=== PATIENT | female | born 1955 | race Caucasian/White ===

== ENCOUNTER 2016-08-02 17:22 | Inpatient (IN) | payer BC, OTHER ==
[~2016-08-02] VITALS: Ht 177.8 cm; Wt 93.9 kg
[~2016-08-02 17:22] MED LIST: LEVO125T72 PO; LIOT5TAB PO; LISI-725 PO; METO-217 PO; PANT40TA PO; SERT-234 PO
[2016-08-02] MEDS ORDERED: PIPERACILLIN/TAZOBACTAM 4.5 GM/100ML D5W IV STA (19:14)
[2016-08-02] MEDS ORDERED: SODIUM CHLORIDE 0.9% 1000ML 1,000 ML IV STA (19:14)
[2016-08-02 20:21] LABS: BASO % 0.2 %; BASO ABS # 0.02 K/uL (0-0.2); COMPLETE YES; EOS % 1.8 %; IG% 0.2 %; LYMPH % 12.5 %; MEAN CELL VOLUME 90.9 fL (80-100); MEAN CORPUSCULAR HEMOGLOBIN 30.4 pg (25-34); MEAN CORPUSCULAR HGB CONC 33.5 g/dl (32-36); MEAN PLATELET VOLUME 11.5 fL (7.4-10.4); MONO % 5.4 %; NEUT % 79.9 %; PLATELET COUNT 175 K/uL (130-400); RED BLOOD COUNT 4.73 M/uL (4.2-5.4); WHITE BLOOD COUNT 9.58 K/uL (4.8-10.8)
[2016-08-02] MEDS ORDERED: VANCOMYCIN INJ 1,000 MG in SODIUM CHLORIDE 0.9% 250ML 250 ML IV STA (20:42)
[2016-08-02] MEDS ORDERED: ACETAMINOPHEN IV 100 ML IV PRN (20:45)
[2016-08-02] MEDS ORDERED: PANTOprazole SOD 40 MG TAB PO PRN (20:45)
[2016-08-02] MEDS ORDERED: ONDANSETRON INJ 2 MG/ML 2 ML VIAL IV PRN (20:45)
[2016-08-02] MEDS ORDERED: LORAZEPAM 2 MG/ML 1 ML VIAL IV PRN (20:45)
[2016-08-02] MEDS ORDERED: PROMETHAZINE HCL INJ 12.5 MG in SODIUM CHLORIDE 0.9% 50ML 50 ML IV PRN (20:45)
[2016-08-02] MEDS ORDERED: ALUMINUM/MAGNESIUM/SIMETH (MAALOX MAX) 30 ML UDC PO PRN (20:45)
[2016-08-02] MEDS ORDERED: ZOLPIDEM TARTRATE 5 MG TAB PO PRN (20:45)
[2016-08-02] MEDS ORDERED: MAGNESIUM HYDROXIDE SUSP 30 ML UDC PO PRN (20:45)
[2016-08-02] MEDS ORDERED: ACETAMINOPHEN 325 MG TAB PO PRN (20:45)
[2016-08-02] MEDS ORDERED: DiphenhydrAMINE HCL 50 MG/ML VIAL IV PRN (20:45)
[2016-08-02 20:48] LABS: BUN/CREATININE RATIO 17.3 (10-20); C-REACTIVE PROTEIN 2.06 mg/dl (0-0.29); CALCIUM 9.2 mg/dl (8.5-10.1); CREATININE 0.85 mg/dl (0.60-1.20); POTASSIUM 3.9 mmol/L (3.5-5.1)
[2016-08-02 20:53] LABS: CKMB/CK RATIO 1.5 (0-3.0)
[2016-08-02] MEDS ORDERED: LORAZEPAM INJ 0.5 MG in SYRINGE 0.75 ML IV PRN (22:15)
[2016-08-02 22:19] VITALS: BP 147/94; PULSE 114; TEMP 37.1; O2SAT 99
[2016-08-02 22:26] VITALS: BP 147/94; PULSE 114; TEMP 37.1; Ht 177.8 cm; Wt 93.9 kg
[2016-08-02] MEDS ORDERED: VANCOMYCIN INJ 2,150 MG in SODIUM CHLORIDE 0.9% 500ML 500 ML IV SCH (22:30)
[2016-08-02] MEDS: DOCUSATE SODIUM 100 MG CAP PO SCH (22:39)
[2016-08-02] MEDS: CHOLESTYRAMINE LIGHT 4 GM PKT PO SCH (22:40)
--- NOTE | 2016-08-02 23:32 | History and Physical ---
History & Physical Date & Time of Service: Aug 02, 2016 at 23:25 Chief Complaint: Addominal Wall Cellulitis Primary Care Physician: Kashmir Pike III, CRNP History of Present Illness Source: patient The patient is a 60-year-old female who presents emergency department with complaint of rapidly progressive erythema and induration around a healing surgical lesion that she picked earlier in the day. She reports that there was a scab there and she thought might heal faster this removed and shortly after moving a scab her the redness developed. She has no fevers or chills has not noticed any significant drainage. Past Medical/Surgical History Medical Problems: (1) Cholecystectomy Status: Resolved (2) Colonoscopy Status: Resolved (3) Esophageal repair Status: Resolved (4) ESOPHAGEAL STRICTURE Status: Chronic (5) Esophagogastroduodenoscopy Status: Resolved (6) HYPERTENSION NOS Status: Chronic (7) HYPOTHYROIDISM NOS Status: Chronic (8) Polymyalgia rheumatica Status: Chronic (9) PURE HYPERCHOLESTEROLEM Status: Chronic Family History Diabetes mellitus FH: cancer FH: lung disease Hypertension Social History Smoking Status: Never Smoker Smokeless Tobacco Use: No Alcohol Use: none Drug Use: none Marital Status: Housing status: lives with family Occupational Status: unemployed Immunizations History of Influenza Vaccine: Yes Influenza Vaccine Date: Apr 08, 2013 History of Tetanus Vaccine?: Unknown History of Pneumococcal: Yes Pneumococcal Date: Apr 08, 2012 History of Hepatitis B Vaccine: Unknown Multi-Drug Resistant Organisms History of MDRO: No Allergies Coded Allergies: Clavulanic Acid (Verified Allergy, Mild, 06/06/16) Gadolinium (Verified Allergy, Unknown, HIVES, 06/06/16) PATIENT REPORTS REACTION OF A "FEW HIVES" TO AN MRI CONTRAST AGENT AROUND 1997. Nicergoline (Verified Allergy, Unknown, 06/06/16) Amoxicillin (Verified Adverse Reaction, Unknown, Diarrhea., 06/06/16) Home Medications Scheduled Levothyroxine Sodium (Synthroid), 125 MCG PO QAM Liothyronine Sodium (Cytomel), 5 MCG PO QAM Lisinopril (Zestril), 20 MG PO QAM Metoprolol Succinate (Toprol Xl), 50 MG PO QAM Sertraline (Zoloft), 100 MG PO QAM Scheduled PRN Pantoprazole (Protonix), 40 MG PO DAILY PRN for Dyspepsia Review of Systems The patient denies chest pain, palpitations, shortness of breath, cough, lower extremity swelling, vision change, hearing change, sore throat, fevers, chills, sweats, weight change, fatigue, nausea, vomiting, abdominal pain, pelvic pain, blood in urine or stool, dysuria, urinary frequency or urgency, lightheadedness , dizziness, headache, memory loss, abnormal bruising or bleeding, imbalance, focal or generalized weakness, numbness or tingling in arms or legs, arthralgias or myalgias, back or neck pain, night sweats, or allergy symptoms. The review of systems is otherwise negative other than for that already noted above, and at least 10 systems have been reviewed. Physical Exam Vital Signs Date Time Temp Pulse Resp B/P Pulse Ox O2 Delivery O2 Flow Rate FiO2 08/02/16 22:26 37.1 114 18 147/94 Room Air 08/02/16 22:19 37.1 114 18 147/94 99 Room Air 08/02/16 21:43 36.9 78 18 148/86 98 08/02/16 21:12 85 18 170/88 100 Room Air 08/02/16 17:28 37.1 101 18 122/81 97 Room Air The patient is awake, well-developed and adequately nourished, alert and oriented 3, normocephalic and atraumatic, lying in bed and in no acute distress. HEENT--PERRL, EOMI, mucous membranes and oropharynx moist. Neck--supple, no JVD or bruits, thyroid normal, trachea midline, no adenopathy. Heart--normal S1 and S2, no extra beats, no murmurs, rubs or gallops. Lungs--clear bilaterally with good air movement, no respiratory distress, no accessory muscle use. Abdomen--normal bowel sounds and soft, nontender and nondistended, no hernias or masses, no organomegaly. Extremities--no cyanosis, clubbing or edema. There are good distal pulses b/l. Dermatologic--abdomen with central scabbing approximately 3 cm high by 4 cm wide , with granulation tissue laterally, surrounded by diffuse erythema without her borders marked with a marker. Neurologic--cranial nerves II through XII grossly intact, motor and sensory examination normal. Rheumatologic--normal range of motion, nontender, muscles and joints. Psychiatric--normal affect. Diagnostics Laboratory Results Results Past 24 Hours Test 08/02/16 20:05 Range/Units White Blood Count 9.58 4.8-10.8 K/uL Red Blood Count 4.73 4.2-5.4 M/uL Hemoglobin 14.4 12.0-16.0 g/dL Hematocrit 43.0 37-47 % Mean Corpuscular Volume 90.9 80-100 fL Mean Corpuscular Hemoglobin 30.4 25-34 pg Mean Corpuscular Hemoglobin Concent 33.5 32-36 g/dl Platelet Count 175 130-400 K/uL Mean Platelet Volume 11.5 7.4-10.4 fL Neutrophils (%) (Auto) 79.9 % Lymphocytes (%) (Auto) 12.5 % Monocytes (%) (Auto) 5.4 % Eosinophils (%) (Auto) 1.8 % Basophils (%) (Auto) 0.2 % Neutrophils # (Auto) 7.65 1.4-6.5 K/uL Lymphocytes # (Auto) 1.20 1.2-3.4 K/uL Monocytes # (Auto) 0.52 0.11-0.59 K/uL Eosinophils # (Auto) 0.17 0-0.5 K/uL Basophils # (Auto) 0.02 0-0.2 K/uL RDW Standard Deviation 49.1 36.4-46.3 fL RDW Coefficient of Variation 14.8 11.5-14.5 % Immature Granulocyte % (Auto) 0.2 % Immature Granulocyte # (Auto) 0.02 0.00-0.02 K/uL Erythrocyte Sedimentation Rate 34 0-21 mm/hr Sodium Level 143 136-145 mmol/L Potassium Level 3.9 3.5-5.1 mmol/L Chloride Level 110 98-107 mmol/L Carbon Dioxide Level 26 21-32 mmol/L Anion Gap 7.0 3-11 mmol/L Blood Urea Nitrogen 15 7-18 mg/dl Creatinine 0.85 0.60-1.20 mg/dl Est Creatinine Clear Calc Drug Dose 88.5 ml/min Estimated GFR () 86.9 Estimated GFR (Non- 75.0 BUN/Creatinine Ratio 17.3 10-20 Random Glucose 100 70-99 mg/dl Lactic Acid Level 1.6 0.4-2.0 mmol/L Calcium Level 9.2 8.5-10.1 mg/dl Total Creatine Kinase 39 26-192 U/L Creatine Kinase MB 0.6 0.5-3.6 ng/ml Creatine Kinase MB Ratio 1.5 0-3.0 C-Reactive Protein 2.06 0-0.29 mg/dl Microbiology Results 08/02/16 Blood Culture, Received Pending 08/02/16 Blood Culture, Received Pending Impression Assessment and Plan Abdominal wall cellulitis--patient will be admitted to the medical floor. She' ll be started on vancomycin IV per renal dosing and aztreonam IV. We'll consult wound care nurse and infectious disease for follow-up. Hypothyroidism --continue levothyroxine sodium 125 g and liothyronine 5 g by mouth every morning. Hypertension-- continue Toprol-XL 50 mg by mouth every morning and lisinopril 20 mg by mouth every morning. GERD--continue pantoprazole 40 mg by mouth daily. Depression--continue sertraline 100 mg by mouth every morning. Level of Care Med/Surg Advanced Directives Existing Advance Directive: No Existing Living Will: Yes Existing Power of General Internal Medicine Physician: No Resuscitation Status FULL RESUSCITATION VTE Prophylaxis VTE Risk Assessment Done? Y/N: Yes Risk Level: Moderate Given or contraindicated: SCD's Social Service Consult None Apply
[2016-08-02] MEDS: AZTREONAM IV 2,000 MG in DEXTROSE 5% 100ML 100 ML IV SCH (23:55)
--- NOTE | 2016-08-03 00:03 | EMERGENCY ROOM VISIT NOTE ---
History Report prepared by Jeremy: Mendez Monique Under the Supervision of: Dr. Hector Maria D.O. First contact with patient: 19:07 Chief Complaint: WOUND INFECTION Stated Complaint: WOUND INFECTION, SPREADING Nursing Triage Summary: pt had absominal surgery in march in stages of healing pt picked at wound abdominal area is reddend History of Present Illness The patient is a 60 year old female who presents to the Emergency Room with complaints of a worsening wound infection on her mid abdomen beginning several hours prior to arrival. She currently rates her discomfort as a 3/10 in severity. The patient associates worsening redness to the area and scabbing to the wound with today's symptoms. She states the wound is located at the spot she had a scar revision surgery performed three months ago. The patient admits to picking at the wound. She notes she has been using triple antibiotic cream, as well. The patient denies a fever, nausea, and vomiting. She denies a history of diabetes and MRSA. 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 Review of Systems See HPI for pertinent positives & negatives. A total of 10 systems reviewed and were otherwise negative. Past Medical & Surgical Medical Problems: (1) Abdominal wall cellulitis (2) Cholecystectomy (3) Colonoscopy (4) Esophageal repair (5) ESOPHAGEAL STRICTURE (6) Esophagogastroduodenoscopy (7) HYPERTENSION NOS (8) HYPOTHYROIDISM NOS (9) Polymyalgia rheumatica (10) PURE HYPERCHOLESTEROLEM Family History Diabetes mellitus FH: cancer FH: lung disease Hypertension Social History Smoking Status: Never Smoker Alcohol Use: none Drug Use: none Marital Status: Housing Status: lives with family Occupation Status: unemployed Current/Historical Medications Scheduled Levothyroxine Sodium (Synthroid), 125 MCG PO QAM Liothyronine Sodium (Cytomel), 5 MCG PO QAM Lisinopril (Zestril), 20 MG PO QAM Metoprolol Succinate (Toprol Xl), 50 MG PO QAM Sertraline (Zoloft), 100 MG PO QAM Scheduled PRN Pantoprazole (Protonix), 40 MG PO DAILY PRN for Dyspepsia Allergies Coded Allergies: Clavulanic Acid (Verified Allergy, Mild, 06/06/16) Gadolinium (Verified Allergy, Unknown, HIVES, 06/06/16) PATIENT REPORTS REACTION OF A "FEW HIVES" TO AN MRI CONTRAST AGENT AROUND 1997. Nicergoline (Verified Allergy, Unknown, 06/06/16) Amoxicillin (Verified Adverse Reaction, Unknown, Diarrhea., 06/06/16) Physical Exam Vital Signs Date Time Temp Pulse Resp B/P Pulse Ox O2 Delivery O2 Flow Rate FiO2 08/02/16 21:43 36.9 78 18 148/86 98 08/02/16 21:12 85 18 170/88 100 Room Air 08/02/16 17:28 37.1 101 18 122/81 97 Room Air Physical Exam CONSTITUTIONAL/VITAL SIGNS: Reviewed / noted above. GENERAL: Non-toxic in appearance. INTEGUMENTARY: Warm, dry, and [place]. HEAD: Normocephalic. EYES: without scleral icterus or trauma. ENT/OROPHARYNX: clear and moist. LYMPHADENOPATHY/NECK: Is supple without lymphadenopathy or meningismus. RESPIRATORY: Lungs clear and equal. CARDIOVASCULAR: Regular rate and rhythm. GI/ABDOMEN: Diffuse 36cm X 14cm erythema in the lower abdomen and pelvic area from iliac crest to iliac crest. There is a wound in the upper portion of the erythema. No discharge from the wound. No palpable abscesses. Soft and nontender. No organomegaly or pulsatile mass. No rebound or guarding. Normal bowel sounds. EXTREMITIES: Warm and well perfused. BACK: No CVA tenderness. NEUROLOGICAL: Intact without focal deficits. PSYCHIATRIC: normal affect. MUSCULOSKELETAL: Normally developed with good muscle tone. Medical Decision & Procedures Laboratory Results 08/02/16 20:05 Red Blood Count 4.73, Mean Corpuscular Volume 90.9, Mean Corpuscular Hemoglobin 30.4, Mean Corpuscular Hemoglobin Concent 33.5, Mean Platelet Volume 11.5, Neutrophils (%) (Auto) 79.9, Lymphocytes (%) (Auto) 12.5, Monocytes (%) (Auto) 5.4, Eosinophils (%) (Auto) 1.8, Basophils (%) (Auto) 0.2, Neutrophils # (Auto) 7.65, Lymphocytes # (Auto) 1.20, Monocytes # (Auto) 0.52, Eosinophils # (Auto) 0.17, Basophils # (Auto) 0.02 08/02/16 20:05 Test 08/02/16 20:05 White Blood Count 9.58 K/uL (4.8-10.8) Red Blood Count 4.73 M/uL (4.2-5.4) Hemoglobin 14.4 g/dL (12.0-16.0) Hematocrit 43.0 % (37-47) Mean Corpuscular Volume 90.9 fL (80-100) Mean Corpuscular Hemoglobin 30.4 pg (25-34) Mean Corpuscular Hemoglobin Concent 33.5 g/dl (32-36) Platelet Count 175 K/uL (130-400) Mean Platelet Volume 11.5 fL (7.4-10.4) Neutrophils (%) (Auto) 79.9 % Lymphocytes (%) (Auto) 12.5 % Monocytes (%) (Auto) 5.4 % Eosinophils (%) (Auto) 1.8 % Basophils (%) (Auto) 0.2 % Neutrophils # (Auto) 7.65 K/uL (1.4-6.5) Lymphocytes # (Auto) 1.20 K/uL (1.2-3.4) Monocytes # (Auto) 0.52 K/uL (0.11-0.59) Eosinophils # (Auto) 0.17 K/uL (0-0.5) Basophils # (Auto) 0.02 K/uL (0-0.2) RDW Standard Deviation 49.1 fL (36.4-46.3) RDW Coefficient of Variation 14.8 % (11.5-14.5) Immature Granulocyte % (Auto) 0.2 % Immature Granulocyte # (Auto) 0.02 K/uL (0.00-0.02) Erythrocyte Sedimentation Rate 34 mm/hr (0-21) Anion Gap 7.0 mmol/L (3-11) Est Creatinine Clear Calc Drug Dose 88.5 ml/min Estimated GFR () 86.9 Estimated GFR (Non- 75.0 BUN/Creatinine Ratio 17.3 (10-20) Lactic Acid Level 1.6 mmol/L (0.4-2.0) Calcium Level 9.2 mg/dl (8.5-10.1) Total Creatine Kinase 39 U/L (26-192) Creatine Kinase MB 0.6 ng/ml (0.5-3.6) Creatine Kinase MB Ratio 1.5 (0-3.0) C-Reactive Protein 2.06 mg/dl (0-0.29) Laboratory results as stated above per my review. Medications Administered Medications (Trade) Dose Ordered Sig/Urvashi Route Start Time Stop Time Status Last Admin Dose Admin Sodium Chloride (Nss 1000ml) 1,000 ml @ 999 mls/hr Q1H1M STAT IV 08/02/16 19:14 08/02/16 20:14 DC 08/02/16 21:05 999 MLS/HR Piperacillin Sod/ Tazobactam Sod (Zosyn Iv) 4.5 gm NOW STAT IV 08/02/16 19:14 08/02/16 19:16 DC 08/02/16 21:05 4.5 GM Cholestyramine Resin (Questran Powder Light) 4 gm BID@10,22 PO 08/02/16 22:00 09/01/16 21:59 08/02/16 22:40 4 GM ED Course 1911: Previous medical records were reviewed. The patient was evaluated in room A4B. A complete history and physical examination was performed. 1913: Ordered Zosyn Iv 4.5 gm IV, Sodium Chloride 1,000 ml @ 999 mls/hr IV. 1935: I spoke to JIMENA Epstein (Hospitalist) about the patient's case, and he will follow the patient for further evaluation. Medical Decision Etiologies such as cellulitis, abscess, MRSA infection, DVT, necrotizing fasciitis, dermatitis, drug eruption, as well as others were entertained.. This is a 60-year-old female who presents to the ED with a chief complaint of abdominal cellulitis. Details listed above. The cellulitis involves the entire lower aspect of the abdomen. There is an open wound in the area related to a previous scar revision. The patient is afebrile. Her vital signs are stable. Lactate was normal. White blood cell count is normal. Sedimentation rate and CRP are elevated. The patient was started on IV Zosyn. I spoke with the hospice, who will see the patient for further inpatient care. The cellulitis was outlined with a skin marker. Consults Time Called: 1934 Consulting Physician: JIMENA Epstein (Hospitalist) Returned Call: 1935 I spoke to JIMENA Epstein (Hospitalist) about the patient's case, and he will follow the patient for further evaluation. Impression Primary Impression: Abdominal wall cellulitis Scribe Attestation The scribe's documentation has been prepared under my direction and personally reviewed by me in its entirety. I confirm that the note above accurately reflects all work, treatment, procedures, and medical decision making performed by me. Departure Information Dispostion Being Evaluated By Hospitalist (JIMENA Epstein (Hospitalist)) Referrals No Doctor, Assigned (PCP)
[2016-08-03 00:32] VITALS: BP 117/81; PULSE 89; TEMP 36.9; O2SAT 99
[2016-08-03] MEDS ORDERED: VANCOMYCIN CONSULT ACTIVE PRN (01:30)
--- NOTE | 2016-08-03 01:43 | Pharmacy Progress Note ---
Pharmacy Antibiotic Consult Date of Service: Aug 03, 2016. Pharmacy Dosing Scope Pharmacy is consulted to initiate Vancomycin IV dosing therapy, order appropriate labs and adjust drug dose/frequency. Subjective The patient is a 60 year old female admitted on Aug 02, 2016 at 22:05. Objective Height (Feet): 5 Height (Inches): 10.00 Weight (Kilograms): 93.900 Lab Results (24hrs): Laboratory Tests Test 08/02/16 20:05 BUN/Creatinine Ratio 17.3 Blood Urea Nitrogen 15 mg/dl Creatinine 0.85 mg/dl White Blood Count 9.58 K/uL Red Blood Count 4.73 M/uL Hemoglobin 14.4 g/dL Hematocrit 43.0 % Mean Corpuscular Volume 90.9 fL Mean Corpuscular Hemoglobin 30.4 pg Mean Corpuscular Hemoglobin Concent 33.5 g/dl Platelet Count 175 K/uL Mean Platelet Volume 11.5 fL Neutrophils (%) (Auto) 79.9 % Lymphocytes (%) (Auto) 12.5 % Monocytes (%) (Auto) 5.4 % Eosinophils (%) (Auto) 1.8 % Basophils (%) (Auto) 0.2 % Neutrophils # (Auto) 7.65 K/uL Lymphocytes # (Auto) 1.20 K/uL Monocytes # (Auto) 0.52 K/uL Eosinophils # (Auto) 0.17 K/uL Basophils # (Auto) 0.02 K/uL Recent Pertinent Medications * Patient is also receiving Aztreonam 2gm IV every 8 hours Assessment & Plan * 60 y/o female admitted for abdominal wall cellulitis to be treated with vancomycin and aztreonam. * Vancomycin loading dose: 2150 mg IV (25mg/kg) X 1 dose then 1200mg (~13mg/kg ) IV every 12 hours. * Goal trough level estimate: between 15-18 mcg/mL. * Trough level has been ordered for: 08/04/16 at 1000 just prior to the 4th vancomycin dose. Pharmacy will continue to follow and will adjust dose/frequency as necessary. Thank you
[2016-08-03 05:58] LABS: BASO % 0.3 %; BASO ABS # 0.02 K/uL (0-0.2); COMPLETE YES; EOS % 1.3 %; HEMATOCRIT 39.6 % (37-47); IG% 0.3 %; LYMPH % 19.8 %; LYMPH ABS # 1.47 K/uL (1.2-3.4); MEAN CORPUSCULAR HEMOGLOBIN 29.9 pg (25-34); MEAN CORPUSCULAR HGB CONC 32.8 g/dl (32-36); MEAN PLATELET VOLUME 11.7 fL (7.4-10.4); MONO % 5.4 %; NEUT % 72.9 %; PLATELET COUNT 138 K/uL (130-400); RED BLOOD COUNT 4.35 M/uL (4.2-5.4); WHITE BLOOD COUNT 7.43 K/uL (4.8-10.8)
[2016-08-03 06:30] LABS: BUN/CREATININE RATIO 16.7 (10-20); CALCIUM 8.4 mg/dl (8.5-10.1); CREATININE 0.81 mg/dl (0.60-1.20); MAGNESIUM 1.7 mg/dl (1.8-2.4); POTASSIUM 3.9 mmol/L (3.5-5.1)
[2016-08-03] MEDS: LIOTHYRONINE SODIUM 5 MCG TAB PO SCH (06:31)
[2016-08-03] MEDS: LEVOTHYROXINE 125 MCG TAB PO SCH (06:31)
[2016-08-03 07:42] VITALS: BP 105/71; PULSE 82; TEMP 36.9; O2SAT 94
[2016-08-03] MEDS: AZTREONAM IV 2,000 MG in DEXTROSE 5% 100ML 100 ML IV SCH (07:56)
[2016-08-03] MEDS: DOCUSATE SODIUM 100 MG CAP PO SCH ×2 (07:57→19:25)
[2016-08-03] MEDS: METOPROLOL SUCC 50MG EXT REL TAB PO SCH (07:58)
[2016-08-03] MEDS: LISINOPRIL 20 MG TAB PO SCH ×2 (07:59→08:00)
[2016-08-03] MEDS: SERTRALINE HCL 100 MG TAB PO SCH (07:59)
[2016-08-03] MEDS ORDERED: PNEUMOCOCCAL ADMINISTRATION CHARGE ONE (08:00)
[2016-08-03] MEDS ORDERED: PNEUMOCOCCAL POLYSACCHARIDES 25 MCG/0.5 ML VIAL/SYR IM. ONE (08:00)
--- NOTE | 2016-08-03 08:13 | Progress Note ---
Subjective Date of Service: Aug 03, 2016. Subjective pt has redness that has progressed outside of lines, states this started from her scratching previous scar Problem List Medical Problems: (1) Post-op bleeding Status: Acute (2) Post-op pain Status: Acute Review of Systems Constitutional: No chills, No fatigue, No fever, No weakness Respiratory: No cough, No shortness of breath Cardiac: No chest pain, No edema Abdomen: No diarrhea, No pain Psychiatric: No anhedonism, No anxiety, No depression symptoms Skin: + color change, + new/changing skin lesions, + rash Objective Vital Signs Date Time Temp Pulse Resp B/P Pulse Ox O2 Delivery O2 Flow Rate FiO2 08/03/16 07:42 36.9 82 12 105/71 94 Room Air 08/03/16 00:32 36.9 89 18 117/81 99 Room Air 08/03/16 00:15 Room Air 08/02/16 22:26 37.1 114 18 147/94 Room Air 08/02/16 22:19 37.1 114 18 147/94 99 Room Air 08/02/16 21:43 36.9 78 18 148/86 98 08/02/16 21:12 85 18 170/88 100 Room Air 08/02/16 17:28 37.1 101 18 122/81 97 Room Air Physical Exam General Appearance: WD/WN, + mild distress Neck: supple, no JVD Respiratory/Chest: chest non-tender, lungs clear, normal breath sounds Cardiovascular: regular rate, rhythm, no murmur Abdomen: normal bowel sounds, non tender, soft, + pertinent finding (bilateral erythema to small pannus consistent with cellulitis) Extremities: no pedal edema, no calf tenderness Laboratory Results Last 24 Hours Test 08/02/16 20:05 08/03/16 05:29 White Blood Count 9.58 K/uL 7.43 K/uL Red Blood Count 4.73 M/uL 4.35 M/uL Hemoglobin 14.4 g/dL 13.0 g/dL Hematocrit 43.0 % 39.6 % Mean Corpuscular Volume 90.9 fL 91.0 fL Mean Corpuscular Hemoglobin 30.4 pg 29.9 pg Mean Corpuscular Hemoglobin Concent 33.5 g/dl 32.8 g/dl Platelet Count 175 K/uL 138 K/uL Mean Platelet Volume 11.5 fL 11.7 fL Neutrophils (%) (Auto) 79.9 % 72.9 % Lymphocytes (%) (Auto) 12.5 % 19.8 % Monocytes (%) (Auto) 5.4 % 5.4 % Eosinophils (%) (Auto) 1.8 % 1.3 % Basophils (%) (Auto) 0.2 % 0.3 % Neutrophils # (Auto) 7.65 K/uL 5.42 K/uL Lymphocytes # (Auto) 1.20 K/uL 1.47 K/uL Monocytes # (Auto) 0.52 K/uL 0.40 K/uL Eosinophils # (Auto) 0.17 K/uL 0.10 K/uL Basophils # (Auto) 0.02 K/uL 0.02 K/uL RDW Standard Deviation 49.1 fL 49.6 fL RDW Coefficient of Variation 14.8 % 14.8 % Immature Granulocyte % (Auto) 0.2 % 0.3 % Immature Granulocyte # (Auto) 0.02 K/uL 0.02 K/uL Erythrocyte Sedimentation Rate 34 mm/hr Sodium Level 143 mmol/L 142 mmol/L Potassium Level 3.9 mmol/L 3.9 mmol/L Chloride Level 110 mmol/L 110 mmol/L Carbon Dioxide Level 26 mmol/L 22 mmol/L Anion Gap 7.0 mmol/L 10.0 mmol/L Blood Urea Nitrogen 15 mg/dl 14 mg/dl Creatinine 0.85 mg/dl 0.81 mg/dl Est Creatinine Clear Calc Drug Dose 88.5 ml/min 92.9 ml/min Estimated GFR () 86.9 92.1 Estimated GFR (Non- 75.0 79.5 BUN/Creatinine Ratio 17.3 16.7 Random Glucose 100 mg/dl 103 mg/dl Lactic Acid Level 1.6 mmol/L Calcium Level 9.2 mg/dl 8.4 mg/dl Total Creatine Kinase 39 U/L Creatine Kinase MB 0.6 ng/ml Creatine Kinase MB Ratio 1.5 C-Reactive Protein 2.06 mg/dl Magnesium Level 1.7 mg/dl Assessment and Plan Abdominal wall cellulitis--was started on vancomycin IV and aztreonam IV. changed to unasyn by ID, will have wound care help with open areas Hypothyroidism -clinically stable-continue levothyroxine sodium 125 g and liothyronine 5 g by mouth every morning. Hypertension-- Toprol-XL 50 mg and lisinopril 20 mg GERD-- pantoprazole 40 mg Depression-- sertraline 100 mg by mouth
[2016-08-03 08:24] VITALS: O2SAT 94
[2016-08-03] MEDS ORDERED: MAGNESIUM SULFATE 1GM / D5W 1 GM in PREMIXED IN D5W 100 ML IV ONE (08:45)
[2016-08-03] MEDS: VANCOMYCIN INJ 1,200 MG in SODIUM CHLORIDE 0.9% 250ML 250 ML IV SCH ×2 (10:31→21:11)
[2016-08-03] MEDS: CHOLESTYRAMINE LIGHT 4 GM PKT PO SCH ×2 (10:31→21:11)
--- NOTE | 2016-08-03 10:42 | Progress Note ---
Progress Note ID Consult Dictated #[id number] A/P: 1. Abd wall cellulitis -Will change to vanco/unasyn -Follow cultures -If further progression, ct a/p -Will follow, thank you
--- NOTE | 2016-08-03 11:11 | INFECT. DISEASE CONSULTATION ---
DATE OF CONSULTATION: 08/03/2016 REQUESTING PHYSICIAN: Dr. Sandhu. HISTORY OF PRESENT ILLNESS: This is a 60-year-old female who was admitted yesterday after she had worsening abdominal wall cellulitis. She states that she has a history of esophageal hernia which was repaired. 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 She has had difficulty with wound healing and recently had a revision of her scar in March. Since that time, she states she has had some local irritation because the scar is where her pants rub. For this reason, she had recently been picking at a scab and yesterday noticed diffuse erythema across her abdominal wall. 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 She has no fevers or chills. Because of the worsening erythema, she presented to the hospital yesterday. She does not have a leukocytosis but did have a mildly elevated sed rate at 34. She has been afebrile since admission. She was started empirically on vancomycin and aztreonam and is tolerating these well. She does carry AN ALLERGY TO AMOXICILLIN but states that the reason for this is diarrhea. She has had no difficulty with rash, hives or shortness of breath. She also does admit to having chronic diarrhea from rapid emptying secondary to her GI surgeries previously. She currently states she is feeling well. A line was drawn on the abdomen yesterday in the ER and unfortunately on the left flank this has progressed somewhat today, but she denies any pain associated with this. She is tolerating antibiotics well. She denies chest pain, cough, shortness of breath, nausea, vomiting, diarrhea or abdominal pain. She has no urinary complaints. All remaining review of systems are reviewed and are negative except for as noted above. PAST MEDICAL HISTORY: Significant for esophageal stricture, hypertension, hypothyroidism, polymyalgia rheumatica, hypercholesterolemia. SURGICAL HISTORY: Significant for cholecystectomy, colonoscopy, esophageal repair, multiple EGDs and recent scar repair in March. FAMILY HISTORY: Noncontributory. SOCIAL HISTORY: Negative for tobacco use, alcohol use or drug use. She is . She lives with family. ALLERGIES: SHE HAS ALLERGIES TO NITROGLYCERIN, GADOLINIUM AND PENICILLIN; however, this was diarrhea and not a true allergy. CURRENT MEDICATIONS: Include vancomycin, lisinopril, Toprol-XL, Zoloft, Synthroid, Cytomel, vancomycin, aztreonam, lorazepam, Colace, cholestyramine, Ativan, Tylenol, milk of magnesia, Benadryl, Maalox, Ambien, Zofran, Tylenol and Protonix. PHYSICAL EXAMINATION: VITAL SIGNS: She is afebrile, pulse 82, respiratory rate is 12, blood pressure is 108/71, and oxygen saturation 94-99% on room air. GENERAL: She is awake, alert and oriented x3. She is in no acute distress. HEENT: Mucous membranes are moist. Extraocular muscles are intact. HEART: Regular. LUNGS: Clear. ABDOMEN: Soft, nontender and nondistended. There is no warmth but significant erythema around the area of an epigastric wound. There is some dried blood, but no purulent drainage or active bleeding. This erythema does extend to the left leg; however, it is not associated with warmth or tenderness. She does have significant diminished feeling secondary to previous vagus nerve damage. EXTREMITIES: There is no lower extremity edema. SKIN: Otherwise without rash. LABORATORY STUDIES: CBC today reveals a white blood cell count of 7.4, hemoglobin 13, hematocrit 39.6 and platelets are 138. Sed rate was mildly elevated in the ER at 34. Chemistry panel today reveals a sodium of 142, potassium 3.8, chloride 110, bicarbonate 22, BUN 14, creatinine 0.8, glucose is 103. Blood cultures were done in the ER and are pending. There is no imaging to review. ASSESSMENT AND PLAN: Abdominal wall cellulitis. At this time, I will change her antibiotics to vancomycin and Unasyn as she has tolerated penicillin drugs in the past. She is also requesting a probiotic and this will be added. She will be monitored for any worsening progression of the erythema. If this occurs, a CAT scan may be warranted; however, she does appear clinically stable at this time. Hopefully, she will continue to improve. She is anxious to be discharged to home, but I do not feel she is ready for discharge at this time and will be reevaluated tomorrow. Thank you for this consultation.
[2016-08-03] MEDS: LACTOBACILLUS ACIDOPHILUS (FLORANEX) TAB PO SCH ×2 (12:21→16:45)
[2016-08-03] MEDS: AMPICILLIN/SULBACTAM SOD INJ 3,000 MG in SODIUM CHLORIDE 0.9% 100ML 100 ML IV SCH ×2 (12:26→18:09)
[2016-08-03 14:13] VITALS: BP_SYST 98; PULSE 68; TEMP 36.8; O2SAT 94
[2016-08-04] MEDS: AMPICILLIN/SULBACTAM SOD INJ 3,000 MG in SODIUM CHLORIDE 0.9% 100ML 100 ML IV SCH ×3 (00:14→12:09)
[2016-08-04 00:57] VITALS: BP 109/69; PULSE 63; TEMP 36.7; O2SAT 98
[2016-08-04] MEDS: LIOTHYRONINE SODIUM 5 MCG TAB PO SCH (05:39)
[2016-08-04] MEDS: LEVOTHYROXINE 125 MCG TAB PO SCH (05:40)
[2016-08-04 07:11] VITALS: BP 92/62; PULSE 55; TEMP 36.4; O2SAT 95
[2016-08-04] MEDS: LACTOBACILLUS ACIDOPHILUS (FLORANEX) TAB PO SCH ×2 (07:42→12:09)
[2016-08-04] MEDS: LISINOPRIL 20 MG TAB PO SCH (07:43)
[2016-08-04] MEDS: SERTRALINE HCL 100 MG TAB PO SCH (07:43)
[2016-08-04] MEDS: METOPROLOL SUCC 50MG EXT REL TAB PO SCH (07:43)
[2016-08-04] MEDS: DOCUSATE SODIUM 100 MG CAP PO SCH ×2 (07:43→08:00)
[2016-08-04 07:53] LABS: BASO % 0.3 %; BASO ABS # 0.02 K/uL (0-0.2); COMPLETE YES; EOS % 4.5 %; IG% 0.2 %; LYMPH % 31.1 %; LYMPH ABS # 1.87 K/uL (1.2-3.4); MEAN CELL VOLUME 91.3 fL (80-100); MEAN CORPUSCULAR HGB CONC 32.8 g/dl (32-36); MEAN PLATELET VOLUME 11.5 fL (7.4-10.4); MONO % 10.1 %; NEUT % 53.8 %; PLATELET COUNT 150 K/uL (130-400); RED BLOOD COUNT 4.27 M/uL (4.2-5.4); WHITE BLOOD COUNT 6.02 K/uL (4.8-10.8)
[2016-08-04 08:00] VITALS: O2SAT 95
[2016-08-04 08:22] LABS: BUN/CREATININE RATIO 16.5 (10-20); CALCIUM 8.9 mg/dl (8.5-10.1); CREATININE 0.79 mg/dl (0.60-1.20); POTASSIUM 4.3 mmol/L (3.5-5.1)
[2016-08-04] MEDS ORDERED: VANCOMYCIN TROUGH SCH (10:00)
[2016-08-04] MEDS: VANCOMYCIN INJ 1,200 MG in SODIUM CHLORIDE 0.9% 250ML 250 ML IV SCH (10:38)
[2016-08-04] MEDS: CHOLESTYRAMINE LIGHT 4 GM PKT PO SCH (10:38)
--- NOTE | 2016-08-04 11:33 | Pharmacy Progress Note ---
Pharmacy Antibiotic Prog Note Date of Service: Aug 04, 2016. Subjective: The patient is currently receiving vancomycin 1200 mg IV every 12 hours. The patient is currently on day # 3 of IV therapy. Objective: Height (Feet): 5 Height (Inches): 10.00 Weight (Kilograms): 93.900 Levels: Item Value Date Time Vancomycin Level Trough 13.0 mcg/ml 08/04/16 0952 Lab Results (24hrs): Laboratory Tests Test 08/04/16 07:04 BUN/Creatinine Ratio 16.5 Blood Urea Nitrogen 13 mg/dl Creatinine 0.79 mg/dl White Blood Count 6.02 K/uL Red Blood Count 4.27 M/uL Hemoglobin 12.8 g/dL Hematocrit 39.0 % Mean Corpuscular Volume 91.3 fL Mean Corpuscular Hemoglobin 30.0 pg Mean Corpuscular Hemoglobin Concent 32.8 g/dl Platelet Count 150 K/uL Mean Platelet Volume 11.5 fL Neutrophils (%) (Auto) 53.8 % Lymphocytes (%) (Auto) 31.1 % Monocytes (%) (Auto) 10.1 % Eosinophils (%) (Auto) 4.5 % Basophils (%) (Auto) 0.3 % Neutrophils # (Auto) 3.24 K/uL Lymphocytes # (Auto) 1.87 K/uL Monocytes # (Auto) 0.61 K/uL Eosinophils # (Auto) 0.27 K/uL Basophils # (Auto) 0.02 K/uL Recent Pertinent Medications: Item Value Date Time Ampicillin Sodium/ 108 ml @ 200 mls/hr 08/03/16 1200 Sulbactam Sodium Q6/IV 08/04/16 0539 3000 mg/Sodium Chloride Assessment & Plan: patient appears to be improving this AM. According to Dr Conley's note yesterday, the erythema on the patient's abdomen had appeared to spread. Therefore I will continue to be aggressive in dosing. This drug level is: Subtherapeutic. Change to vancomycin 1200 mg IV every 10 hours. Goal peak level estimate: between 35 - 40 mcg/mL. Goal trough level estimate: between 15 - 20 mcg/mL (indication is cellulitis, but uncertain if component of MRSA) Trough has been ordered for: prior to 1700. Pharmacy will continue to follow and will adjust dose/frequency as necessary. Thank you
--- NOTE | 2016-08-04 12:59 | Progress Note ---
Subjective Date of Service: Aug 04, 2016. Subjective Pt evaluation today including: conversation w/ patient, physical exam, chart review, lab review pt feeling much better today, eating lunch, no complaints. states she is being d /c home later today. no f/c. wbc remains nml. Blood cultures negative x 2. had wound care eval today. Erythema much improved, no drainage or bleeding from wound. Diarrhea better, tolerating unasyn. Deciding whether or not she wants to follow with wound center post d/c. All remaining ros reviewed and are negative. Problem List Medical Problems: (1) Post-op bleeding Status: Acute (2) Post-op pain Status: Acute Objective Vital Signs Date Time Temp Pulse Resp B/P Pulse Ox O2 Delivery O2 Flow Rate FiO2 08/04/16 07:11 36.4 55 18 92/62 95 Room Air 08/04/16 00:57 36.7 63 20 109/69 98 Room Air 08/04/16 00:00 Room Air 08/03/16 15:15 Room Air 08/03/16 14:13 36.8 68 16 98/ 94 Physical Exam General Appearance: WD/WN, no apparent distress Eyes: EOMI Neck: supple Respiratory/Chest: lungs clear Cardiovascular: regular rate, rhythm, no edema Abdomen: non tender, soft Extremities: non-tender, normal inspection, no pedal edema Neurologic/Psychiatric: alert, oriented x 3 Skin: normal color Comments: abd wall much improved erythema, still with spots of erythema but less and has not progressed. No warmth to touch. no bleeding or drainage from wound. non tender but lack of sensation. Laboratory Results Item Value Date Time Blood Culture - Preliminary Resulted 08/02/162004 Blood NO GROWTH TO DATE. Blood Culture - Preliminary Resulted 08/02/162019 Blood NO GROWTH TO DATE. Last 24 Hours Test 08/04/16 07:04 08/04/16 09:52 White Blood Count 6.02 K/uL Red Blood Count 4.27 M/uL Hemoglobin 12.8 g/dL Hematocrit 39.0 % Mean Corpuscular Volume 91.3 fL Mean Corpuscular Hemoglobin 30.0 pg Mean Corpuscular Hemoglobin Concent 32.8 g/dl Platelet Count 150 K/uL Mean Platelet Volume 11.5 fL Neutrophils (%) (Auto) 53.8 % Lymphocytes (%) (Auto) 31.1 % Monocytes (%) (Auto) 10.1 % Eosinophils (%) (Auto) 4.5 % Basophils (%) (Auto) 0.3 % Neutrophils # (Auto) 3.24 K/uL Lymphocytes # (Auto) 1.87 K/uL Monocytes # (Auto) 0.61 K/uL Eosinophils # (Auto) 0.27 K/uL Basophils # (Auto) 0.02 K/uL RDW Standard Deviation 49.1 fL RDW Coefficient of Variation 14.6 % Immature Granulocyte % (Auto) 0.2 % Immature Granulocyte # (Auto) 0.01 K/uL Sodium Level 144 mmol/L Potassium Level 4.3 mmol/L Chloride Level 113 mmol/L Carbon Dioxide Level 21 mmol/L Anion Gap 10.0 mmol/L Blood Urea Nitrogen 13 mg/dl Creatinine 0.79 mg/dl Est Creatinine Clear Calc Drug Dose 95.2 ml/min Estimated GFR () 95.0 Estimated GFR (Non- 81.9 BUN/Creatinine Ratio 16.5 Random Glucose 97 mg/dl Calcium Level 8.9 mg/dl Magnesium Level 2.0 mg/dl Vancomycin Level Trough 13.0 mcg/ml Assessment and Plan (1) Abdominal wall cellulitis Assessment & Plan: can continue IV abx for now, ok to d/c on po abx when medically stable. can change to po Augmentin 875mg po bid with food x 14 days. continue local wound care.
[2016-08-04] MEDS ORDERED: QSTP PO (13:35)
[2016-08-04] MEDS ORDERED: SULF800T23 PO (13:35)
--- NOTE | 2016-08-04 13:37 | Discharge Instructions ---
Discharge Instructions Admission Reason for Admission: Addominal Wall Cellulitis Discharge Discharge Diagnosis / Problem: abdominal wall cellulitis Discharge Goals Goal(s): Diagnostic testing, Therapeutic intervention Activity Recommendations Activity Limitations: resume your previous activity Shower/Bathe: keep incision dry . Instructions / Follow-Up Instructions / Follow-Up please follow wound care recommendations for wound at home Current Hospital Diet Patient's current hospital diet: Regular Diet Discharge Diet Recommended Diet: Regular Diet Pending Studies Studies pending at discharge: no Medical Emergencies . Who to Call and When: Medical Emergencies: If at any time you feel your situation is an emergency, please call 911 immediately. . Non-Emergent Contact Non-Emergency issues call your: Primary Care Provider . . "Provider Documentation" section prepared by Zach Temple. VTE Core Measure Inpt VTE Proph given/why not?: SCD's
[2016-08-04 14:17] VITALS: BP 92/62; PULSE 55; TEMP 36.4; O2SAT 95
--- NOTE | 2016-08-04 16:45 | Discharge Summary ---
Discharge Summary Admission Date: Aug 02, 2016 at 22:05 Discharge Date: Aug 04, 2016 Discharge Disposition: Home Principal Diagnosis: abdominal wall cellulitis Immunizations: Have You Had Influenza Vaccine: Yes Influenza Vaccine Date: Apr 08, 2013 History of Tetanus Vaccine?: Unknown History of Pneumococcal: Yes Pneumococcal Date: Apr 08, 2012 History of Hepatitis B Vaccine: Unknown Medication Reconciliation New Medications: Sulfa/Trimethoprim (Bactrim Ds 800MG/160MG) Tab 1 TAB PO BID for 8 Days, #16 TAB Cholestyramine (Cholestyramine Light) 4 Gm Pack 4 GM PO BID@,, #60 PKT 6 Refills Continued Medications: Levothyroxine Sodium (Synthroid) 125 Mcg Tab 125 MCG PO QAM Liothyronine Sodium (Cytomel) 5 Mcg Tab 5 MCG PO QAM Lisinopril (Zestril) 20 Mg Tab 20 MG PO QAM Metoprolol Succinate (Toprol Xl) 50 Mg Tabcr 50 MG PO QAM Pantoprazole (Protonix) 40 Mg Tab 40 MG PO DAILY PRN for Dyspepsia Sertraline (Zoloft) 100 Mg Tab 100 MG PO QAM Discharge Exam Review of Systems: Constitutional: No chills, No fever, No weakness Respiratory: No cough, No sputum Cardiovascular: No chest pain, No orthopnea Abdomen: No constipation, No diarrhea, No nausea, No pain, No vomiting Genitourinary - Male: No dysuria, No hematuria Integumentary: + new/changing skin lesions, + rash Physical Exam: General Appearance: WD/WN, + mild distress Neck: supple, no JVD Respiratory/Chest: chest non-tender, lungs clear, normal breath sounds Cardiovascular: regular rate, rhythm, no murmur Abdomen / GI: normal bowel sounds, non tender, soft Extremities: no pedal edema, normal range of motion Neurologic/Psychiatric: alert, oriented x 3 Skin: + pertinent finding (marked skin improvement and less redness) Hospital Course Abdominal wall cellulitis--was started on vancomycin IV and aztreonam IV. changed to unasyn by ID, will change to bactrim on discharge as good improvement with unasyn, wound care with teaching given Diarrhea after maria fernanda, improved with cholestyramine, will continue Hypothyroidism -clinically stable-continue levothyroxine sodium 125 g and liothyronine 5 g by mouth every morning. Hypertension-- Toprol-XL 50 mg and lisinopril 20 mg GERD-- pantoprazole 40 mg Depression-- sertraline 100 mg by mouth Total Time Spent: Greater than 30 minutes This includes examination of the patient, discharge planning, medication reconciliation, and communication with other providers. Discharge Instructions Please refer to the electronic Patient Visit Report (Discharge Instructions) for additional information.
[2016-08-04] MEDS ORDERED: VANCOMYCIN INJ 1,200 MG in SODIUM CHLORIDE 0.9% 250ML 250 ML IV SCH (21:00)
[2016-08-05] MEDS ORDERED: VANCOMYCIN TROUGH SCH (16:30)
[2016-08-16] MEDS ORDERED: SULF800T23 PO (13:25)
[2016-08-16] MEDS ORDERED: LCTX PO (13:25)
== END 2016-08-04 15:00 | disposition home or self-care (01) | DRG 603 ==
LOC: ENRESERVTM → ENRESERVDT → C.EDB 17:23 → C.4E 22:05
PROVIDERS: ADMIT Hospitalist; ATTEND Internal Medicine
DX: L03.311 Cellulitis of abdominal wall (principal); I10 Essential (primary) hypertension; M35.3 Polymyalgia rheumatica; E78.00 Pure hypercholesterolemia, unspecified; Z83.3 Family history of diabetes mellitus; E03.9 Hypothyroidism, unspecified; F32.9 Major depressive disorder, single episode, unspecified; K21.9 Gastro-esophageal reflux disease without esophagitis

== ENCOUNTER → 2016-11-29 | Outpatient (CLI) | payer BC ==
[~2016-11-29] MED LIST changes: +LCTX PO; -PANT40TA PO; +QSTP PO
--- NOTE | 2016-11-30 06:36 | SPLIT NIGHT TECHNICIAN REPORT ---
[facility] Split Night Polysomnogram - Non Destructive Testing Inspector Report Study date: 11/29/2016 Referring Physician: TONO GRIGGS III, CRNP Name: BONI ETIENNE Non Destructive Testing Inspector: LIDYA Abraham. Date of : 1955 Height: 60 years, Height 5' 10" Sex: Female Weight: 211 lbs Age: 60 BMI: Medications: 30.27 Sulfamethozazole-Trimethiprom 800-160 mg, Sertraline 100 mg, Lisinopril 20 mg, Metoprolol Succinate ER 50 mg, Liothyronine Soidum 5 MCG, Levothyroxine Sodium 150 MCG, Pantoprazole Sodium 40 mg, Cholestyramine 4 gm Patient History 60 yr. old female sent to a CPAP titration study. Patient has not used CPAP for approx. five years and does not have a CPAP unit or equipment. A Split night study will be attempted if AHI > 5 to requalify patient. Patient complains of never feeling rested and loud snoring. Parameters Monitored NPSG: E1-M2, E2-M1, Fp1-M2, Fp2-M1, F3-M2, F4-M2, F4-M1, C3-M2, C4-M2, C4-M1, O1-M2, O2-M2, O2-M1, T3-M2, T4-M1, P3-M2, P4-M1, CHIN1, CHIN2, HR, EKG, Legs, PFLOW, SNOR, FLOW, CFLOW, Tidal Volume, THOR, ABDO, SpO2, PLTH, CPRESS, ETCO2 Wave, ETCO2, pH SLEEP SUMMARY DATA DIAGNOSTIC TREATMENT Lights Out: 10:10:13 PM 1:17:13 AM Lights On: 1:12:43 AM 5:33:43 AM Total Recording Time (TRT): 183.0 min. 257.5 min. Total Sleep Time (TST): 121.5 min. 230.0 min. NREM Time: 98.5 min. 182.5 min. REM Time: 23.0 min. 47.5 min. Sleep Period Time (SPT): 147.5 min. 256.5 min. Sleep Efficiency (SE): 67 % 90 % Sleep Latency: 35.0 min. 0.0 min. Arousal Index: 18.3 11.5 PAP Treatment Levels: 4, 5, 6 * Optimal Pressure(s) SLEEP STAGING DATA DIAGNOSTIC TREATMENT Duration (min) TST % Duration (min) TST % Stage Wake: 61.0 min. -- 26.5 min. -- WASO: 26.0 min. -- 26.5 min. -- NREM: 98.5 min. 81 % 182.5 min. 79 % Stage N1: 12.5 min. 10 % 27.5 min. 12 % Stage N2: 86.0 min. 71 % 137.5 min. 60 % Stage N3: 0.0 min. 0 % 17.5 min. 8 % REM: 23.0 min. 19 % 47.5 min. 21 % POSITIONAL DATA Event Count Index Event Count Index Supine: N/A N/A N/A N/A Supine NREM: N/A N/A N/A N/A Supine REM: N/A N/A N/A N/A Non-Supine: 17 6.9 10 2.1 Non-Supine NREM: 16 7.9 10 2.6 Non-Supine REM: 1 2.6 0 0.0 AROUSAL SUMMARY DATA: Event Count Index Event Count Index Apnea Arousals: 0 1.0 0 0.3 Hypopnea Arousals: 2 1.0 1 0.3 Snore Arousals: 7 3.5 14 3.7 PLM Arousals: 20 9.9 14 3.7 Non-Specific Arousals: 3 1.5 5 1.3 Total Arousals: 37 18.3 44 11.5 MYOCLONUS (PLM) Event Count Index Event Count Index PLM: 165 81.5 37 9.7 PLM AROUSAL: 20 9.9 14 3.7 PLM W/O AROUSAL 165 81.5 23 6.0 PLM W/RESP EVENT 6 0.0 3 0.0 MYOCLONUS (PLM) Event Count Index Event Count Index LM: 2 6.9 28 7.3 LM AROUSAL: 2 1.0 7 1.8 LM W/O AROUSAL LM W/RESP EVENT LM NON SPECIFIC 151 74.6 39 10.2 HEART RATE DATA DIAGNOSTIC TREATMENT Sleep (bpm): 70 60 REM (bpm): 90 93 NREM (bpm): 91 93 Tachycardia Count: 0 0 Tachycardia Duration: 0.00 0 Bradycardia Count: 0 0 Bradycardia Duration: 0.00 0 DIAGNOSTIC PORTION TREATMENT PORTION RESPIRATORY DATA Event Count Index Event Count Index AHI: -- 6.9 -- 2.1 RDI: -- 8.4 -- 3 Obstructive Apnea: 1 0.5 0 0.0 Central Apnea: 1 0.5 1 0.3 Mixed Apnea: 0 0.0 0 0.0 Hypopnea: 12 5.9 7 1.8 RERA: 3 1.5 2 0.5 Total Apneas: 2 1.0 1 0.3 RESPIRATORY DATA REM NREM SLEEP REM NREM SLEEP Supine Position: Obstructive Apneas: N/A N/A N/A N/A N/A N/A Central Apneas: N/A N/A N/A N/A N/A N/A Mixed Apneas: N/A N/A N/A N/A N/A N/A Hypopneas: N/A N/A N/A N/A N/A N/A RERA N/A N/A N/A N/A N/A N/A Total Supine Events: N/A N/A N/A N/A N/A N/A Supine AHI: N/A N/A N/A N/A N/A N/A Supine RDI: N/A N/A N/A N/A N/A N/A REM NREM SLEEP REM NREM SLEEP Non-Supine Position: Obstructive Apneas: 0 1 1 0 0 0 Central Apneas: 0 1 1 0 1 1 Mixed Apneas: 0 0 0 0 0 0 Hypopneas: 1 11 12 0 7 7 RERA 0 3 3 0 2 2 Total Supine Events: 1 16 17 0 10 10 Supine AHI: 2.6 7.9 6.9 0.0 2.6 2.1 Supine RDI: 2.6 9.7 8.4 0.0 3.3 2.6 OXYGEN DESTAURATION DATA: Event Count Index Event Count Index REM Desaturations: 1 2.6 0 0.0 NREM Desaturations: 12 7.3 13 4.3 SNORE DATA DIAGNOSTIC TREATMENT Snore Time: 8.6 1:17:13 AM Snore TST%: 6 1 Snore Arousal Count: 7 14 Snore Arousal Index: 3.5 3.7 Desaturation Event Summary: Minimum %SpO2 Event Count Mean/Min/Max Duration(sec.) Desaturation Index % Time In Bed > 90 38 22.0 / 6.3 / 60.0 6.0 88.4 86 - 90 0 N/A 0.0 11.5 81 - 85 0 N/A 0.0 0.1 76 - 80 0 N/A 0.0 0.0 71 - 75 0 N/A 0.0 0.0 66 - 70 0 N/A 0.0 0.0 61 - 65 0 N/A 0.0 0.0 56 - 60 0 N/A 0.0 0.0 51 - 55 0 N/A 0.0 0.0 < 50 0 N/A 0.0 0.0 OXYGEN SATURATION DATA DIAGNOSTIC TREATMENT SpO2 Mean Sleep: 91 % 93 % SpO2 Mean REM: 90 % 93 % SpO2 Mean NREM: 91 % 93 % SpO2 Minimum Sleep: 88 % 88 % SpO2 Minimum REM: 88 % 91 % SpO2 Minimum NREM: 88 % 88 % Time Below 90% (TST): 7.0 0.2 Time Below 88% (TST): 0.0 0.0 Total REM NREM Awake <50% 0.0 min. 0.0 min. 0.0 min. 0.0 min. 51 - 60% 0.0 min. 0.0 min. 0.0 min. 0.0 min. 61 - 70% 0.0 min. 0.0 min. 0.0 min. 0.0 min. 71 - 80% 0.0 min. 0.0 min. 0.0 min. 0.0 min. 81 - 90% 49.5 min. 12.5 min. 32.5 min. 4.5 min. 91 - 100% 378.1 min. 58.0 min. 246.8 min. 73.4 min. Average 92 92 92 93 Minimum SpO2 84 88 88 84 Desaturation Event Index 5.2 0.9 5.3 8.9 # Desat. Events below 89% 3 N/A 1 2 Time(%) with Saturation below 89% 0.5 0.2 0.1 0.2 Time(min.) with Saturation below 89% 2.1 1.0 0.3 0.8 Recording Non Destructive Testing Inspector Comments: slept in the right, and left positions. No cardiac arrhythmia. PLMs noted. No bruxism noted. Snoring was noted and scored as a 3 on a scale of 0 through 5. (0=no snoring, 5=snoring loud enough to be heard through a closed door or down the [address]) At 1:17 am , met modified ( AHI >5) Split-Night criteria during the diagnostic portion of this study. CPAP was initiated at +4 CMH2O room air and up-titrated to an optimal level of + 6 CMH2O Cflex 2. A medium ResMed Quattro air was used during titration. awoke to use the restroom once during the night. stated, "I slept better than usual". The final report will be interpreted and signed by a sleep physician. The completed physician report will then be placed in the patient medical record. Therapy Event: Therapy (cm H20) 0 4 5 6 Total Time at Pressure (min.) 182.5 18.6 48.2 189.7 TST at Pressure (min.) 121.5 18.6 33.2 178.2 # Periods 1 1 1 1 Sleep Onset (min.) 35.0 0.0 0.0 0.0 REM Onset (min.) 159.5 N/A N/A 88.7 Sleep Efficiency % 66 100 68 93 Wakefulness (%) 33.4 0.0 31.1 6.1 Wakefulness (min.) 61.0 0.0 15.0 11.5 NREM 1 (%) 6.8 26.9 24.9 5.5 NREM 1 (min.) 12.5 5.0 12.0 10.5 NREM 2 (%) 47.1 73.1 36.8 56.0 NREM 2 (min.) 86.0 13.6 17.7 106.2 NREM 3 (%) 0.0 0.0 7.3 7.4 NREM 3 (min.) 0.0 0.0 3.5 14.0 REM (%) 12.6 0.0 0.0 25.0 REM (min.) 23.0 0.0 0.0 47.5 # Arousals 37 5 17 22 Arousal Index 18.3 16.1 30.7 7.4 # Snore 330 3 25 23 Snore Index 163.0 9.7 45.1 7.7 AHI 6.9 9.7 3.6 1.0 AHI Supine N/A N/A N/A N/A AHI Non-Supine 6.9 9.7 3.6 1.0 NREM AHI 7.9 9.7 3.6 1.4 REM AHI 2.6 N/A N/A 0.0 RDI 8.4 9.7 7.2 1.0 # Obstructive 1 0 0 0 # Central Ap 1 0 0 1 # Mixed 0 0 0 0 # Hypopneas 12 3 2 2 RERAS 3 0 2 0 Total Respiratory Events 17 3 4 3 Time Below SpO2 89.00% (min.) 1.2 0.0 0.0 0.2 Mean NREM SpO2 (%) 91 93 92 93 Mean REM SpO2 (%) 90 N/A N/A 93 Mean Sleep SpO2 (%) 91 93 92 93 Min NREM SpO2 (%) 88 90 90 88 Min REM SpO2 (%) 88 N/A N/A 91 Position Supine (min.) 0.0 0.0 0.0 0.0 Position Non-supine (min.) 121.5 18.6 33.2 178.2 LM Index Sleep 88.4 29.0 32.5 12.8 LM Index NREM 108.4 29.0 32.5 14.2 LM Index REM 2.6 N/A N/A 8.8 Mean Heart Rate (bpm) 70 60 60 59 Min Heart Rate (bpm) 57 58 55 51
--- NOTE | 2016-12-05 17:55 | POLYSOMNOGRAPH REPORT ---
REFERRING PHYSICIAN: JENI Ybarra. CLINICAL DATA: The patient is a 60-year-old female. She has a prior history of sleep apnea and previously wore nasal CPAP. She has not used CPAP for approximately 5 years and she does not have any CPAP equipment. Her complaints include loud snoring and never feeling rested. She is referred for a split night sleep study. SLEEP ARCHITECTURE: During the diagnostic portion of the study, the sleep period time was 147.5 minutes. The total sleep time was 121.5 minutes. The sleep efficiency was reduced to 67%. The sleep latency was prolonged to 35 minutes. During the therapeutic portion of the study, the patient was treated with nasal CPAP. The sleep period time was 256.5 minutes. The total sleep time was 230 minutes. The sleep efficiency was normalized at 90%. The sleep latency was 0. AROUSAL DATA: During the diagnostic portion of the study, the patient had a total of 37 arousals including 2 hypopnea arousals, 7 snoring arousals, 20 PLM arousals, and 3 nonspecific arousals. The arousal index was 18.3. During the therapeutic portion of the study when the patient was treated with nasal CPAP. She had 44 arousals including 1 hypopnea arousal, 14 snoring arousals, 14 PLM arousals and 5 nonspecific arousals. The arousal index was 11.5. PLM DATA: During the diagnostic portion of the study, the patient had 165 periodic limb movements for an index of 81.5. There were 20 events with arousals for a PLM arousal index of 9.9. During the therapeutic portion of the study, she had 37 PLMs for an index of 9.7. There were 14 arousals for a PLM arousal index of 3.7. EKG: The cardiac rhythm was normal sinus. The cardiac rates ranged from 60-93 beats per minute. RESPIRATORY DATA: During the diagnostic portion of the study, the patient had a total of 14 respiratory events including 1 obstructive apnea, 1 central apnea, and 12 hypopneas. Hypopneas were scored according to the 4% desaturation rule. The apnea hypopnea index was mildly elevated at 6.9 events per hour. During the therapeutic portion of the study, the patient had a total of 8 respiratory events including 1 central apnea and 7 hypopneas. The apnea-hypopnea index was 2.1. At the final pressure of 6 cm she had 1 central apnea and 2 hypopneas and her apnea-hypopnea index was 1.0. She spent approximately 3 hours at the final pressure of 6 cm. OXIMETRY DATA: During the diagnostic portion of the study, the mean saturation was 91% with a minimum of 88%. There was 0 time less than 88%. During the treatment portion of the study, the mean saturation was 93%. The minimum saturation was 88%. There once again was 0 time with saturations less than 88%. EXTERIOR WORK HELPER COMMENTS: Ms. Gary slept in the right and left positions. No cardiac arrhythmia. PLMs noted. No bruxism noted. Snoring was noted and scored as a 3 on a scale of 0 through 5. At 1:17 a.m. the patient met modified split night criteria during the diagnostic portion of the study. CPAP was initiated at 4 cm and up-titrated to an optimal level of 6 cm with C-Flex 2. A medium ResMed Quattro Air mask was used during titration. She awoke to use the restroom once during the night. Following the study she stated "I slept better than usual." IMPRESSION: 1. Obstructive sleep apnea -- mild -- resolved with nasal CPAP at 6 cm. COMMENTS: The patient was found to have mild sleep apnea. She did well with nasal CPAP therapy. Her final pressure was only 6 cm. She felt like she slept better. RECOMMENDATIONS: 1. It is advised that the patient be started on nasal CPAP at 6 cm with a C-Flex set at 2. 2. It is advised that she be ordered a ResMed Quattro Air mask, size medium. 3. The patient has an elevated body mass index of 30.27. A weight reduction program is advised as even modest weight reduction may result in improvement in sleep disordered breathing. 4. The patient should be followed up between day 31 and day 90 after receiving her CPAP. This is typically mandated by insurance companies.
== END | disposition home or self-care (01) ==
LOC: C.NEUR 21:00
PROVIDERS: ATTEND Nurse Practitioner Family
DX: G47.33 Obstructive sleep apnea (adult) (pediatric) (principal); M54.41 Lumbago with sciatica, right side

== ENCOUNTER → 2017-03-16 | Outpatient (CLI) | payer BC ==
[~2017-03-16] VITALS: Ht 177.8 cm; Wt 97.4 kg
[2017-03-16 13:59] VITALS: BP 132/80; PULSE 71; Ht 177.8 cm; Wt 97.4 kg
== END | disposition home or self-care (01) ==
LOC: C.NEUR 13:05
PROVIDERS: ATTEND Physician Assistant
DX: G47.33 Obstructive sleep apnea (adult) (pediatric) (principal); M54.41 Lumbago with sciatica, right side; K52.9 Noninfective gastroenteritis and colitis, unspecified; Z85.3 Personal history of malignant neoplasm of breast; I10 Essential (primary) hypertension; E88.9 Metabolic disorder, unspecified; E03.9 Hypothyroidism, unspecified

== ENCOUNTER 2017-08-26 04:42 | Emergency (ER) | payer OTHER ==
[~2017-08-26] VITALS: Ht 177.8 cm; Wt 100.1 kg
[2017-08-26 04:47] VITALS: TEMP 36.8; Ht 177.8 cm; Wt 100.1 kg
[2017-08-26] MEDS ORDERED: SODIUM CHLORIDE 0.9% 1000ML 1,000 ML IV STA (04:56)
[2017-08-26] MEDS ORDERED: MoRPHine SULFATE 10 MG/ML CARP/VIAL IV STA (04:56)
[2017-08-26] MEDS ORDERED: ONDANSETRON INJ 2 MG/ML 2 ML VIAL IV STA ×2 (04:56→05:52)
--- NOTE | 2017-08-26 05:01 | EMERGENCY ROOM VISIT NOTE ---
History First contact with patient: 04:50 Chief Complaint: HEADACHE Stated Complaint: MASSIVE HEADACHE,DIZZINESS,VOMITING History of Present Illness The patient is a 61 year old female who presents to the Emergency Room for evaluation of headache. Notes rapid onset headache starting around 10a yesterday. Severe in nature. Frontal in location. Associated with nausea, vomiting, dizziness and lightheadedness. No vision changes. Light and sounds make it worse. Nothing makes better. Dayquil taken without relief. Denies trauma, injuries, fevers, syncope, neck pain, weakness, neuro deficits, chest pain, shob, abdominal pain nor other symptoms. Denies blood thinner use. Has history of Migraines though none in last few years. Notes PRES history and that this is not similar to that episode. Was driven here by friend. Review of Systems See HPI for pertinent positives & negatives. A total of 10 systems reviewed and were otherwise negative. Past Medical/Surgical History Medical Problems: (1) Abdominal wall cellulitis (2) Cholecystectomy (3) Colonoscopy (4) Esophageal repair (5) ESOPHAGEAL STRICTURE (6) Esophagogastroduodenoscopy (7) HYPERTENSION NOS (8) HYPOTHYROIDISM NOS (9) Polymyalgia rheumatica (10) PURE HYPERCHOLESTEROLEM Family History Diabetes mellitus FH: cancer FH: lung disease Hypertension Social History Smoking Status: Never Smoker Alcohol Use: none Drug Use: none Marital Status: Housing Status: lives with family Occupation Status: employed Current/Historical Medications Scheduled Cholestyramine (Cholestyramine), 4 GM PO BID Lactobacillus Acidophilus (Lactinex), 1 TAB PO BID Levothyroxine Sodium (Synthroid), 125 MCG PO QAM Liothyronine Sodium (Cytomel), 5 MCG PO QAM Lisinopril (Zestril), 20 MG PO as needed Metoprolol Succinate (Toprol Xl), 50 MG PO QAM Sertraline (Zoloft), 100 MG PO QAM Physical Exam Vital Signs Date Time Temp Pulse Resp B/P (MAP) Pulse Ox O2 Delivery O2 Flow Rate FiO2 08/26/17 07:00 75 18 143/90 95 Nasal Cannula 2.0 08/26/17 06:30 72 18 162/95 93 Nasal Cannula 2.0 08/26/17 06:18 74 18 132/84 96 Nasal Cannula 2.0 08/26/17 06:05 79 18 173/97 97 Room Air 08/26/17 05:56 97 Nasal Cannula 2.0 08/26/17 05:54 88 Room Air 08/26/17 05:52 89 18 196/123 92 Room Air 08/26/17 05:30 80 18 164/100 93 Room Air 08/26/17 04:47 36.8 88 19 148/99 94 Room Air Physical Exam GENERAL: Patient is well appearing and in mild distress. HEAD: No acute trauma, normocephalic atraumatic ENT: Mucous membranes moist, no nasal congestion. EYES: Equal/Reactive Bilaterally, No scleral icterus, Normal ROM NECK: No nuchal rigidity, no meningismus, trachea is midline, full ROM LUNGS: No dyspnea. Clear to auscultation and equal bilaterally. No wheeze, no rhonchi. HEART: Regular rate and rhythm. No murmurs, rubs, gallops appreciated. ABDOMEN: Soft, nontender, bowel sounds positive, no masses appreciated, no peritonitis. BACK: No midline tenderness, no CVA tenderness EXTREMITIES: Normal motion all extremities, no cyanosis, no edema. NEUROLOGIC: Awake, Alert, Oriented, no acute motor or sensory deficits, no focal weakness, cranial nerves grossly intact. SKIN: No rash, no jaundice, no diaphoresis. Medical Decision & Procedures ER Provider Diagnostic Interpretation: Per STAT RAD, images and report reviewed by me: CT HEAD: Comparison November 2014. No acute intracranial findings. Imaged portion of sinuses and mastoids well aerated. Suspect partially empty sella Radiologist: Mukesh Vela M.D. Laboratory Results 08/26/17 05:08 Red Blood Count 4.71, Mean Corpuscular Volume 93.2, Mean Corpuscular Hemoglobin 30.8, Mean Corpuscular Hemoglobin Concent 33.0, Mean Platelet Volume 11.2, Neutrophils (%) (Auto) 76.5, Lymphocytes (%) (Auto) 15.7, Monocytes (%) (Auto) 6.6, Eosinophils (%) (Auto) 0.9, Basophils (%) (Auto) 0.3, Neutrophils # (Auto) 2.68, Lymphocytes # (Auto) 0.55, Monocytes # (Auto) 0.23, Eosinophils # (Auto) 0.03, Basophils # (Auto) 0.01 08/26/17 05:08 Test 08/26/17 05:08 White Blood Count 3.50 K/uL (4.8-10.8) Red Blood Count 4.71 M/uL (4.2-5.4) Hemoglobin 14.5 g/dL (12.0-16.0) Hematocrit 43.9 % (37-47) Mean Corpuscular Volume 93.2 fL (80-100) Mean Corpuscular Hemoglobin 30.8 pg (25-34) Mean Corpuscular Hemoglobin Concent 33.0 g/dl (32-36) Platelet Count 163 K/uL (130-400) Mean Platelet Volume 11.2 fL (7.4-10.4) Neutrophils (%) (Auto) 76.5 % Lymphocytes (%) (Auto) 15.7 % Monocytes (%) (Auto) 6.6 % Eosinophils (%) (Auto) 0.9 % Basophils (%) (Auto) 0.3 % Neutrophils # (Auto) 2.68 K/uL (1.4-6.5) Lymphocytes # (Auto) 0.55 K/uL (1.2-3.4) Monocytes # (Auto) 0.23 K/uL (0.11-0.59) Eosinophils # (Auto) 0.03 K/uL (0-0.5) Basophils # (Auto) 0.01 K/uL (0-0.2) RDW Standard Deviation 47.0 fL (36.4-46.3) RDW Coefficient of Variation 13.7 % (11.5-14.5) Immature Granulocyte % (Auto) 0.0 % Immature Granulocyte # (Auto) 0.00 K/uL (0.00-0.02) Anion Gap 6.0 mmol/L (3-11) Est Creatinine Clear Calc Drug Dose 93.5 ml/min Estimated GFR () 90.1 Estimated GFR (Non- 77.8 BUN/Creatinine Ratio 16.5 (10-20) Calcium Level 8.9 mg/dl (8.5-10.1) Medications Administered Medications (Trade) Dose Ordered Sig/Urvashi Route Start Time Stop Time Status Last Admin Dose Admin Ondansetron HCl (Zofran Inj) 4 mg NOW STAT IV 08/26/17 04:56 08/26/17 04:58 DC 08/26/17 05:10 4 MG Morphine Sulfate (MoRPHine SULFATE INJ) 6 mg NOW STAT IV 08/26/17 04:56 08/26/17 04:58 DC 08/26/17 05:10 6 MG Sodium Chloride 1,000 ml @ 999 mls/hr Q1H1M STAT IV 08/26/17 04:56 08/26/17 05:56 DC 08/26/17 05:09 999 MLS/HR Dexamethasone Sodium Phosphate (Dexamethasone Inj Pf) 10 mg NOW ONCE IV 08/26/17 05:30 08/26/17 05:31 DC 08/26/17 05:35 10 MG Ketorolac Tromethamine (Toradol Inj) 15 mg NOW STAT IV 08/26/17 05:28 08/26/17 05:30 DC 08/26/17 05:37 15 MG Lisinopril (Zestril Tab) 20 mg NOW STAT PO 08/26/17 05:35 08/26/17 05:37 DC 08/26/17 06:03 20 MG Metoprolol Succinate (Toprol Xl Tab) 50 mg NOW STAT PO 08/26/17 05:35 08/26/17 05:37 DC 08/26/17 06:03 50 MG Labetalol HCl (Normodyne IV) 10 mg NOW STAT IV 08/26/17 05:35 08/26/17 05:37 DC 08/26/17 05:51 10 MG Ondansetron HCl (Zofran Inj) 4 mg NOW STAT IV 08/26/17 05:52 08/26/17 05:53 DC 08/26/17 05:55 4 MG Ondansetron HCl (ZOFRAN ODT 4MG Home Pack) 1 homepack UD ONCE PO 08/26/17 07:00 08/26/17 07:01 DC 08/26/17 07:08 1 HOMEPACK Medical Decision Differential: Headache, Migraine, Cluster Headache, Seizure, Meningitis, Sinusitis, CO exposure, ICH/SAH, Infectious, Tumor, Sinus Thrombosis, Arterial Dissection, amongst other pathologies entertained. 61 yr old pleasant female with history of PRES arrives with 24 hours of headache /nausea/vomiting. No neuro deficits on arrival and moderate HTN. Initial morphine for headache while awaiting CT head. On return still with headache thus Toradol/Decadron. required 2 rounds IV Zofran to get nausea under control. BP trending up and thus IV labetalol and oral morning medications given. Labs with mild low WBC which may be result of viral like infection. She does not have findings of meningitis by examination. This does not appear to be dissection nor thrombosis. She does have history of Migraines which this may be and thus BP secondary to discomfort, however obviously with her history PRES BP is big concern here. With 10mg IV Labetalol she has vast improvement in BP (132/84) and is feeling better. Repeat BPs with some elevation (6:40a 140 -96) but without further symptoms. 7a 143/90. Headache is resolving, only mild nausea remains, and no neuro deficits. She has no evidence of stroke at this time. She was able to keep down her morning BP medications. Given her history I offered to have hospitalist evaluate her for monitoring in hospital today, however she declines. She wishes to monitor her symptoms at home. Will send with Jw FERRARO, and instructions were reviewed regarding symptoms regarding return. Head Trauma GCS Score: 15 Medication Reconcilliation Current Medication List: was personally reviewed by me Blood Pressure Screening Patient's blood pressure: Elevated blood pressure Blood pressure disposition: Referred to PCP Impression Primary Impression: Frontal headache Additional Impressions: Nausea & vomiting Hypertensive urgency Departure Information Dispostion Home / Self-Care Condition GOOD Referrals Kashmir Pike III, CRNP (PCP) Patient Instructions My [facility] [place] [address] Additional Instructions Rest and keep well hydrated throughout the day. Use Zofran as needed for nausea today. Return if increasing blood pressure, headache, weakness, passing out, difficulty thinking or other concerns. Follow up with your primary care provider in the next few days for recheck. We are always here to help. Problem Qualifiers
[2017-08-26 05:19] LABS: BASO % 0.3 %; BASO ABS # 0.01 K/uL (0-0.2); EOS % 0.9 %; EOS ABS # 0.03 K/uL (0-0.5); HEMATOCRIT 43.9 % (37-47); HEMOGLOBIN 14.5 g/dL (12.0-16.0); LYMPH % 15.7 %; LYMPH ABS # 0.55 K/uL (1.2-3.4); MEAN CELL VOLUME 93.2 fL (80-100); MEAN CORPUSCULAR HEMOGLOBIN 30.8 pg (25-34); MEAN PLATELET VOLUME 11.2 fL (7.4-10.4); MONO % 6.6 %; MONO ABS # 0.23 K/uL (0.11-0.59); NEUT % 76.5 %; NEUT ABS # 2.68 K/uL (1.4-6.5); PLATELET COUNT 163 K/uL (130-400); RED CELL DISTRIBUTION WIDTH CV 13.7 % (11.5-14.5)
[2017-08-26] MEDS ORDERED: KETOROLAC TROMETHAMINE 30 MG/ML VIAL IV STA (05:28)
[2017-08-26] MEDS ORDERED: CHOL4POW3 PO (05:29)
[2017-08-26] MEDS ORDERED: DEXAMETHASONE **PF** INJ 10 MG/ML VIAL IV ONE (05:30)
[2017-08-26] MEDS ORDERED: LABETALOL HCL IV 5 MG/ML 20ML IV STA (05:35)
[2017-08-26] MEDS ORDERED: LISINOPRIL 20 MG TAB PO STA (05:35)
[2017-08-26] MEDS ORDERED: METOPROLOL SUCC 50MG EXT REL TAB PO STA (05:35)
[2017-08-26 05:37] LABS: CALCIUM 8.9 mg/dl (8.5-10.1); CREATININE 0.82 mg/dl (0.60-1.20)
[2017-08-26] MEDS ORDERED: LISINOPRIL 5 MG TAB ONE (05:46)
[2017-08-26 05:56] VITALS: O2SAT 97
--- NOTE | 2017-08-26 06:25 | DIAGNOSTIC IMAGING REPORT ---
HEAD WITHOUT CONTRAST (CT) CLINICAL HISTORY: 61 years-old Female presenting with severe frontal headache x 24 hours. TECHNIQUE: Multidetector CT imaging of the head was performed without the use of intravenous contrast. IV contrast: None. A dose lowering technique was used consistent with the principles of ALARA (as low as reasonably achievable). COMPARISON: 12/05/2014. CT DOSE (mGy.cm): The estimated cumulative dose is 614.27 mGy.cm. FINDINGS: Maintenance Instructor topogram: Unremarkable. Ventricles and sulci normal in size. Brain parenchyma normal in appearance with preserved aquino-white differentiation. No mass effect or midline shift. No hemorrhage or acute territorial infarct. No extra-axial fluid collection. Paranasal sinuses and mastoid air cells clear. Calvarium intact. IMPRESSION: 1. No acute intracranial abnormality. Electronically signed by: Gavin Nicole M.D. 08/26/2017 6:24 AM Dictated Date/Time: 08/26/2017 6:21 AM
[2017-08-26 07:00] VITALS: BP 143/90; PULSE 75; O2SAT 95
[2017-08-26] MEDS ORDERED: ONDANSETRON HOME PACK 4MG OD TAB PO ONE (07:00)
== END 2017-08-26 07:08 | disposition home or self-care (01) ==
LOC: C.EDB 04:43 → C.EDA 07:08
DX: R51 Headache (principal); R11.2 Nausea with vomiting, unspecified; D72.819 Decreased white blood cell count, unspecified; I16.0 Hypertensive urgency; E03.9 Hypothyroidism, unspecified; Z86.69 Personal history of other diseases of the nervous system and sense organs; Z83.3 Family history of diabetes mellitus; Z82.49 Family history of ischemic heart disease and other diseases of the circulatory system; Z83.6 Family history of other diseases of the respiratory system

== ENCOUNTER 2017-11-03 11:26 | Inpatient (IN) | payer OTHER ==
[~2017-11-03] VITALS: Ht 177.8 cm; Wt 101.7 kg
[~2017-11-03 11:26] MED LIST changes: +CHOL4POW3 PO; -QSTP PO
[2017-11-03] MEDS ORDERED: VANCOMYCIN IV 2,500 MG in SODIUM CHLORIDE 0.9% 500ML 500 ML IV STA (11:54)
[2017-11-03] MEDS ORDERED: VANCOMYCIN CONSULT ACTIVE PRN ×2 (12:00→15:30)
[2017-11-03 12:21] LABS: BASO % 0.2 %; BASO ABS # 0.02 K/uL (0-0.2); EOS % 1.7 %; EOS ABS # 0.17 K/uL (0-0.5); HEMATOCRIT 42.5 % (37-47); HEMOGLOBIN 13.9 g/dL (12.0-16.0); IG# 0.02 K/uL (0.00-0.02); LYMPH % 10.5 %; LYMPH ABS # 1.06 K/uL (1.2-3.4); MEAN CELL VOLUME 93.8 fL (80-100); MEAN CORPUSCULAR HEMOGLOBIN 30.7 pg (25-34); MEAN CORPUSCULAR HGB CONC 32.7 g/dl (32-36); MEAN PLATELET VOLUME 11.3 fL (7.4-10.4); MONO % 4.2 %; MONO ABS # 0.43 K/uL (0.11-0.59); NEUT % 83.2 %; NEUT ABS # 8.42 K/uL (1.4-6.5); PLATELET COUNT 180 K/uL (130-400); RED CELL DISTRIBUTION WIDTH CV 14.1 % (11.5-14.5); RED CELL DISTRIBUTION WIDTH SD 48.6 fL (36.4-46.3); WHITE BLOOD COUNT 10.12 K/uL (4.8-10.8)
[2017-11-03] MEDS ORDERED: CEFAZOLIN IV 1,000 MG in DEXTROSE 5% 50ML 50 ML IV STA (12:23)
[2017-11-03] MEDS ORDERED: FRCT/ PO (12:27)
[2017-11-03] MEDS ORDERED: ACETAMINOPHEN 500 MG TAB PO STA (12:30)
[2017-11-03 12:39] LABS: ALBUMIN 3.6 gm/dl (3.4-5.0); AST/SGOT 27 U/L (15-37); BLOOD UREA NITROGEN 12 mg/dl (7-18); CARBON DIOXIDE 25 mmol/L (21-32); CREATININE 0.83 mg/dl (0.60-1.20); GLUCOSE 96 mg/dl (70-99); POTASSIUM 3.9 mmol/L (3.5-5.1); SODIUM 139 mmol/L (136-145)
--- NOTE | 2017-11-03 12:40 | EMERGENCY ROOM VISIT NOTE ---
History First contact with patient: 11:42 Chief Complaint: ABDOMINAL PAIN Stated Complaint: FULMINATING ABDOMINAL CELLULITIS Nursing Triage Summary: pt reports that she noticed reddness across entire lower abdomen 2 hours ago that is spreading. pt had reddness noted that is warm to touch. pt has an old wound to left side of umbilicus that she reports does not heal. pt has been seen by wound clinic. History of Present Illness The patient is a 61 year old female who presents to the Emergency Room with complaints of abdominal cellulitis. 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 She was seen here in July 2016 and admitted due to the significantly spreading infection. She states she has not had a flareup this bad since that time. She did not notice the redness last evening, but after getting out of the shower, she states she noticed significant spreading redness in the lower abdominal area. She did draw a line to monitor the spread, and states even in the past 2 hours since drying the line the redness has spread. The patient does not see any provider for chronic management of the wound or cellulitis. She was placed on silver dressings and followed up with wound care weekly for several weeks last year. She has not needed to follow-up since that time. Last year, she was placed on IV vancomycin while in the hospital. She states a few days ago, she was picking at the wounds. She suspects this may have caused the spread. She was hoping that the wound was related to a dermatitis, but states it is consistent with cellulitis she experienced last year. She denies any fever, chills, nausea, vomiting, chest pain, dyspnea, sore throat, upper respiratory infection symptoms , recent illness, abdominal pain, urinary symptoms, diarrhea, constipation, or other concerning symptoms. She rates her discomfort 2/10 and describes it as irritating. Review of Systems A complete 10 point review of systems was reviewed with the patient with pertinent positives and negatives as per history of present illness. All else were negative. Past Medical/Surgical History Medical Problems: (1) Abdominal wall cellulitis (2) Cholecystectomy (3) Colonoscopy (4) Esophageal repair (5) ESOPHAGEAL STRICTURE (6) Esophagogastroduodenoscopy (7) HYPERTENSION NOS (8) HYPOTHYROIDISM NOS (9) Polymyalgia rheumatica (10) PURE HYPERCHOLESTEROLEM Family History Diabetes mellitus FH: cancer FH: lung disease Hypertension Social History Smoking Status: Never Smoker Alcohol Use: none Drug Use: none Marital Status: Housing Status: lives with family Occupation Status: employed Current/Historical Medications Scheduled Cholestyramine (Cholestyramine), 4 GM PO BID Lactobacillus Acidophilus (Lactinex), 1 TAB PO BID Levothyroxine Sodium (Synthroid), 125 MCG PO QAM Lisinopril (Zestril), 20 MG PO as needed Metoprolol Succinate (Toprol Xl), 50 MG PO QAM Sertraline (Zoloft), 100 MG PO QAM Miscellaneous Medications Acetamin/Butalbital/Caffeine (Fioricet), 1 TAB PO Physical Exam Vital Signs Date Time Temp Pulse Resp B/P (MAP) Pulse Ox O2 Delivery O2 Flow Rate FiO2 11/03/17 15:28 77 16 137/97 97 Room Air 11/03/17 13:56 79 16 151/101 96 Room Air 11/03/17 12:35 70 16 154/97 97 Room Air 11/03/17 11:30 36.9 78 18 159/95 95 Room Air Physical Exam VITALS: Vitals are noted on the nurse's note and reviewed by myself. Vital signs stable. GENERAL: This is a 61-year-old white female, in no acute distress, nondiaphoretic, well-developed well-nourished. SKIN: Crusted over lesion approximately the size of a quarter to the left of the umbilicus. There is erythema over the anterior pelvis and to the level of the umbilicus. There are small patches of erythema superiorly to the umbilicus. The patient does have a line drawn in the skin and the redness has spread past the line. The skin was otherwise without rashes, erythema, edema, or bruising. There is no tenting of the skin. Capillary reflex less than 2 seconds. HEAD: Normocephalic atraumatic. EARS: External auditory canals clear, tympanic membranes pearly aquino without erythema or effusion bilaterally. EYES: Pupils equal round and reactive to light and accommodation. Conjunctivae without injection, sclerae without icterus. Extraocular movements intact. NOSE: Patent, turbinates without inflammation or discharge. No sinus tenderness. MOUTH: Mucous membranes moist. Tonsils are not enlarged. Pharynx without erythema or exudate. Uvula midline. Airway patent. Tongue does not deviate. NECK: Supple without nuchal rigidity. No lymphadenopathy. No thyromegaly. Cervical spine is nontender. No JVD. HEART: Regular rate and rhythm without murmurs gallops or rubs. LUNGS: Clear to auscultation bilaterally without wheezes, rales or rhonchi. No dullness to percussion. No retractions or accessory muscle use. ABDOMEN: Positive bowel sounds x 4. Normal tympanic percussion. Soft, nontender, without masses or organomegaly. Neal sign negative. No guarding or rebound tenderness. MUSCULOSKELETAL: No muscle atrophy, erythema, or edema noted. Full range of motion without joint tenderness in all extremities. No tenderness to palpation. Normal gait. Strength 5/5 throughout. NEURO: Patient was alert and oriented to person place and time. Normal sensation to light and sharp touch. Deep tendon reflexes 2+ throughout. No focal neurological deficits. Medical Decision & Procedures Laboratory Results 11/03/17 11:40 Red Blood Count 4.53, Mean Corpuscular Volume 93.8, Mean Corpuscular Hemoglobin 30.7, Mean Corpuscular Hemoglobin Concent 32.7, Mean Platelet Volume 11.3, Neutrophils (%) (Auto) 83.2, Lymphocytes (%) (Auto) 10.5, Monocytes (%) (Auto) 4.2, Eosinophils (%) (Auto) 1.7, Basophils (%) (Auto) 0.2, Neutrophils # (Auto) 8.42, Lymphocytes # (Auto) 1.06, Monocytes # (Auto) 0.43, Eosinophils # (Auto) 0.17, Basophils # (Auto) 0.02 11/03/17 11:40 Test 11/03/17 11:40 11/03/17 11:54 11/03/17 12:30 White Blood Count 10.12 K/uL (4.8-10.8) Red Blood Count 4.53 M/uL (4.2-5.4) Hemoglobin 13.9 g/dL (12.0-16.0) Hematocrit 42.5 % (37-47) Mean Corpuscular Volume 93.8 fL (80-100) Mean Corpuscular Hemoglobin 30.7 pg (25-34) Mean Corpuscular Hemoglobin Concent 32.7 g/dl (32-36) Platelet Count 180 K/uL (130-400) Mean Platelet Volume 11.3 fL (7.4-10.4) Neutrophils (%) (Auto) 83.2 % Lymphocytes (%) (Auto) 10.5 % Monocytes (%) (Auto) 4.2 % Eosinophils (%) (Auto) 1.7 % Basophils (%) (Auto) 0.2 % Neutrophils # (Auto) 8.42 K/uL (1.4-6.5) Lymphocytes # (Auto) 1.06 K/uL (1.2-3.4) Monocytes # (Auto) 0.43 K/uL (0.11-0.59) Eosinophils # (Auto) 0.17 K/uL (0-0.5) Basophils # (Auto) 0.02 K/uL (0-0.2) RDW Standard Deviation 48.6 fL (36.4-46.3) RDW Coefficient of Variation 14.1 % (11.5-14.5) Immature Granulocyte % (Auto) 0.2 % Immature Granulocyte # (Auto) 0.02 K/uL (0.00-0.02) Anion Gap 6.0 mmol/L (3-11) Est Creatinine Clear Calc Drug Dose 93.1 ml/min Estimated GFR () 88.8 Estimated GFR (Non- 76.6 BUN/Creatinine Ratio 14.3 (10-20) Calcium Level 9.0 mg/dl (8.5-10.1) Total Bilirubin 0.7 mg/dl (0.2-1) Aspartate Amino Transf (AST/SGOT) 27 U/L (15-37) Alanine Aminotransferase (ALT/SGPT) 39 U/L (12-78) Alkaline Phosphatase 131 U/L (45-117) Total Creatine Kinase 57 U/L (26-192) Creatine Kinase MB 0.9 ng/ml (0.5-3.6) C-Reactive Protein 1.90 mg/dl (0-0.29) Total Protein 7.8 gm/dl (6.4-8.2) Albumin 3.6 gm/dl (3.4-5.0) Globulin 4.2 gm/dl (2.5-4.0) Albumin/Globulin Ratio 0.9 (0.9-2) Creatine Kinase MB Ratio (0-3.0) Lactic Acid Level 1.0 mmol/L (0.4-2.0) Medications Administered Medications (Trade) Dose Ordered Sig/Urvashi Route Start Time Stop Time Status Last Admin Dose Admin Vancomycin HCl 2500 mg/Sodium Chloride 550 ml @ 200 mls/hr ONE STAT IV 11/03/17 11:54 11/03/17 14:38 DC 11/03/17 12:14 200 MLS/HR Cefazolin Sodium 1000 mg/Dextrose 57.5 ml @ 100 mls/hr NOW STAT IV 11/03/17 12:23 11/03/17 12:57 DC 11/03/17 15:27 100 MLS/HR Acetaminophen (Tylenol Tab) 1,000 mg NOW STAT PO 11/03/17 12:30 11/03/17 12:31 DC 11/03/17 12:34 1,000 MG Sodium Chloride 1,000 ml @ 999 mls/hr Q1H1M STAT IV 11/03/17 14:37 11/03/17 15:37 DC 11/03/17 14:51 999 MLS/HR Aspirin/Aluminum/ Magnesium/Ca Carb (Ascriptin Tab) 325 mg NOW STAT PO 11/03/17 14:37 11/03/17 14:40 DC 11/03/17 15:27 325 MG ED Course The patient was seen and evaluated as above. IV access obtained, labs drawn. I discussed the case with the ED pharmacist. She did recommend IV vancomycin loading dose. The patient was reassessed. The redness is continuing to spread. I discussed the case with Dr. Potter. He recommended adding in IV Ancef. I reviewed all labs. Discussed the findings with the patient at bedside. The patient's rash continues to worsen. The patient does complain of headache. She was given 1 g of Tylenol. Due to the continuing worsening of the patient's symptoms despite IV antibiotics , I did discuss the case with the hospitalist. Please see hospitalist dictation regarding further management and care. The patient continues to complain of headache. She was given 325 mg aspirin, she states she normally takes aspirin for her migraines. Medical Decision This is a 61-year-old female patient presents emergency department today complaining of cellulitis of her abdomen. The patient has had similar symptoms just over one year ago, and states the rash is consistent when she required admission and IV antibiotics at that time. She was followed outpatient by the wound center, and after multiple weeks of wound care, was discharged. She has not followed consistently with anybody regarding the wound since last year. The patient does admit to scratching and picking at the lesion a few days ago prior to worsening. She has not been on outpatient antibiotics, as the infection showed up this morning and has been spreading rapidly. CBC was without leukocytosis, anemia, thrombocytopenia. CMP did not reveal any significant renal, electrolyte, hepatic abnormalities. Patient's lactic acid was normal at 1.0. CK-MB was normal at 0.9. C-reactive protein was elevated at 1.9. CPK normal at 57. While here in the emergency department, the patient' s symptoms have been consistently worsening. Her rash has been spreading. I suspect a rapidly spreading cellulitis, and suspect the patient will need admitted for IV antibiotics. I did discuss case with my attending. He was agreeable to the assessment and plan. Differential diagnosis includes cellulitis, abscess, DVT, superficial thrombus, septic joint, necrotizing fasciitis, burn, dermatitis, impetigo, erythema multiforme, bite, osteomyelitis, Barahona-Abran Syndrome, gangrene, malignancy , and others The chart was completed utilizing [employer] Speech voice recognition software. Grammatical errors, random word insertions, pronoun errors, and incomplete sentences are an occasional consequence of this system due to software limitations, ambient noise, and hardware issues. Any formal questions or concerns about the content, text, or information contained within the body of this dictation should be directly addressed to the provider for clarification. Medication Reconcilliation Current Medication List: was personally reviewed by me Blood Pressure Screening Patient's blood pressure: Elevated blood pressure Blood pressure disposition: Elevated BP felt to be situational Impression Primary Impression: Abdominal wall cellulitis Departure Information Dispostion Admitted as an inpatient Condition FAIR Referrals Kashmir Pike III, CRNP (PCP) Patient Instructions My [facility]
[2017-11-03 12:44] LABS: ALKALINE PHOSPHATASE 131 U/L (45-117); ALT/SGPT 39 U/L (12-78); CKMB 0.9 ng/ml (0.5-3.6); TOTAL PROTEIN 7.8 gm/dl (6.4-8.2)
[2017-11-03] MEDS ORDERED: SODIUM CHLORIDE 0.9% 1000ML 1,000 ML IV STA (14:37)
[2017-11-03] MEDS ORDERED: ASPIRIN/ALUM/MAGNES/CAL CARB 325 MG TAB PO STA (14:37)
[2017-11-03] MEDS ORDERED: PIPERACILL/TAZOBAC CONSULT ACTIVE PRN (16:15)
--- NOTE | 2017-11-03 16:20 | History and Physical ---
History & Physical Date & Time of Service: November 03, 2017 at 14:55 Chief Complaint: Fulminating Abdominal Cellulitis Primary Care Physician: Kashmir Pike III, CRNP History of Present Illness Source: patient This morning Ms. Gary got out of the shower that she had redness on her belly around her chronic wound. In April of 2016 she had a surgical revision of an old scar that did become cellulitic at the same site. She had seen wound care in the past for it and mentioned that it previously had some tunneling but that it had resolved. She has not had any problems with it in a year and a half or so. The wound had become scabby over the past few days and she picked at it which she thinks may have contributed. She asia a border after getting out of the shower but the redness spread past these so she came to the ED. She has been a little achey but may just be sore from gardening. No fevers. No nausea or vomiting. She does have a headache which she is prone to which is across her forehead. She said it feels like when her blood pressure is high. She does not have any neck pain or stiffness. ROS Constitutional: no chills, aches, sweats or fever Respiratory: no sob,cough, sputum, or wheezing Cardiac: no chest pain, palpitations, edema, orthopnea or lightheadedness GI: no abdominal pain, nausea, vomiting, diarrhea or constipation : no dysuria or hesitancy Extremities: no joint pain or weakness Skin: no rash All other systems reviewed and negative Pmhx: hypothyroidism, hypertension, PRES syndrome, CARLY with CPAP, Schatzki's ring Past Medical/Surgical History Medical Problems: History of multiple abdominal surgeries for infertility (2) Abdominal wall cellulitis (3) Anxiety (4) Cholecystectomy (5) Cognitive deficit S/P CVA (cerebrovascular accident) (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 Nicergoline (Verified Allergy, Unknown, 08/26/17) Amoxicillin (Verified Adverse Reaction, Unknown, Diarrhea., 08/26/17) Home Medications Scheduled Cholestyramine (Cholestyramine), 4 GM PO BID Lactobacillus Acidophilus (Lactinex), 1 TAB PO BID Levothyroxine Sodium (Synthroid), 125 MCG PO QAM Lisinopril (Zestril), 20 MG PO as needed Metoprolol Succinate (Toprol Xl), 50 MG PO QAM Sertraline (Zoloft), 100 MG PO QAM Miscellaneous Medications Acetamin/Butalbital/Caffeine (Fioricet), 1 TAB PO Physical Exam Vital Signs Date Time Temp Pulse Resp B/P (MAP) Pulse Ox O2 Delivery O2 Flow Rate FiO2 11/03/17 13:56 79 16 151/101 96 Room Air 11/03/17 12:35 70 16 154/97 97 Room Air 11/03/17 11:30 36.9 78 18 159/95 95 Room Air General: no distress Eyes: normal inspection, PERLL Respiratory: chest non tender, clear to auscultation, normal breath sounds, no respiratory distress, no accessory muscle use Cardiac: regular rate and rhythm, no rub or gallop, no murmur, no edema, no jvd GI/: active bowel sounds, no abd pain or tenderness, soft, non distended Extremities: normal range of motion, normal strength, non tender Neuro/Psych: alert and oriented x 3, normal mood and affect Skin: erythema from groin to mid abdomen, crusting right of umbilicus, no drainage or purulence Diagnostics Laboratory Results Results Past 24 Hours Test 11/03/17 11:40 11/03/17 11:54 11/03/17 12:30 Range/Units White Blood Count 10.12 4.8-10.8 K/uL Red Blood Count 4.53 4.2-5.4 M/uL Hemoglobin 13.9 12.0-16.0 g/dL Hematocrit 42.5 37-47 % Mean Corpuscular Volume 93.8 80-100 fL Mean Corpuscular Hemoglobin 30.7 25-34 pg Mean Corpuscular Hemoglobin Concent 32.7 32-36 g/dl Platelet Count 180 130-400 K/uL Mean Platelet Volume 11.3 7.4-10.4 fL Neutrophils (%) (Auto) 83.2 % Lymphocytes (%) (Auto) 10.5 % Monocytes (%) (Auto) 4.2 % Eosinophils (%) (Auto) 1.7 % Basophils (%) (Auto) 0.2 % Neutrophils # (Auto) 8.42 1.4-6.5 K/uL Lymphocytes # (Auto) 1.06 1.2-3.4 K/uL Monocytes # (Auto) 0.43 0.11-0.59 K/uL Eosinophils # (Auto) 0.17 0-0.5 K/uL Basophils # (Auto) 0.02 0-0.2 K/uL RDW Standard Deviation 48.6 36.4-46.3 fL RDW Coefficient of Variation 14.1 11.5-14.5 % Immature Granulocyte % (Auto) 0.2 % Immature Granulocyte # (Auto) 0.02 0.00-0.02 K/uL Sodium Level 139 136-145 mmol/L Potassium Level 3.9 3.5-5.1 mmol/L Chloride Level 108 98-107 mmol/L Carbon Dioxide Level 25 21-32 mmol/L Anion Gap 6.0 3-11 mmol/L Blood Urea Nitrogen 12 7-18 mg/dl Creatinine 0.83 0.60-1.20 mg/dl Est Creatinine Clear Calc Drug Dose 93.1 ml/min Estimated GFR () 88.8 Estimated GFR (Non- 76.6 BUN/Creatinine Ratio 14.3 10-20 Random Glucose 96 70-99 mg/dl Calcium Level 9.0 8.5-10.1 mg/dl Total Bilirubin 0.7 0.2-1 mg/dl Aspartate Amino Transf (AST/SGOT) 27 15-37 U/L Alanine Aminotransferase (ALT/SGPT) 39 12-78 U/L Alkaline Phosphatase 131 45-117 U/L Total Creatine Kinase 57 26-192 U/L Creatine Kinase MB 0.9 0.5-3.6 ng/ml C-Reactive Protein 1.90 0-0.29 mg/dl Total Protein 7.8 6.4-8.2 gm/dl Albumin 3.6 3.4-5.0 gm/dl Globulin 4.2 2.5-4.0 gm/dl Albumin/Globulin Ratio 0.9 0.9-2 Creatine Kinase MB Ratio 0-3.0 Lactic Acid Level 1.0 0.4-2.0 mmol/L Microbiology Results 11/03/17 Blood Culture, Received Pending 11/03/17 Blood Culture, Received Pending Impression Assessment and Plan Ms. Gary is a 61 year old woman here for cellulitis of the abdomen Cellulitis abdomen - admit obs telemetry for tonight - the infection appears to be spreading rapidly given patient's explanation so would have her monitored on tele for tonight. She likely can be transferred tomorrow if infection is under control. I do not have a high suspicion for necrotizing fascitis as the cellulitis is not painful, patient is not toxic - no sign of SIRS or sepsis, and inflammatory markers are only marginally elevated. I am concerned about the rapid spread of the infection however, so plan as below: - Will place on Zosyn, Vanc and clindamycin per discussion with ID - patient has amoxicillin allergy listed on her chart but she reports this is diarrhea and she does not have any allergy to penicillins - wound demarcated - consult wound care and ID - VSS with blood pressures marginally high, will hold off on IVF and place patient on a regular diet - Consulted with general surgery and discussed case - they will see her to assess for need for surgical intervention - Abd/pelvis IV contrast pending - NPO until seen by surgery Hypothyroidism - continue Synthroid HTN - continue metoprolol 50 mg and lisinopril 20 mg daily Anxiety/depression - continue sertraline Restless leg syndrome - continue Pramipexole, ferritin DVT prophylaxis: enoxaparin Advanced Directives Existing Advance Directive: Yes Existing Living Will: Yes Existing Power of Automotive Paint Technician: No Existing Health Care Proxy: No Resuscitation Status Full code but no heroic measures VTE Prophylaxis Will order VTE Prophylaxis: Yes Reviewed: Pt Seen/Exam by Me History TELEPHONE SUPERVISOR supervision Note: I interviewed and examined the patient. Discussed with JENI Epps and agree with findings and plan as documented in the note. Any exceptions or clarifications are listed here: Patient here with rapidly spreading erythematous rash over her abdomen that started today. She denies fevers or chills. It is not itchy. It appears the exact same as when she had cellulitis last year. She has a chronic wound in the periumbilical region after previous hernia repair and then hernia incision revision. She reports she has been picking at the scabbed over wound for about the last month. There has been no purulent drainage. She does have 1 of her typical migraine headaches right now with photophobia and nausea. She gets migraine headaches about 4 times per year. 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 Past history otherwise as above Vitals reviewed Gen: AAOx3, NAD HEENT: anicteric sclerae, EOMI CV: RRR no mgr nl S1S2 Pulm: CTAB no wcr Abd: +BS soft NT ND no masses or hernias Ext: no edema, 2+ DP pulses Skin: Entire abdomen with diffuse erythematous some patchy but mostly confluent macular rash that is blanching and warm to the touch, extends down to the mons pubis and all the way out to the bilateral ASIS as well as up to the epigastric region; there is a 2 x 2 crusted over circular lesion just to the left of the umbilicus Neuro: full strength throughout CT abdomen/pelvis with inflammatory stranding in the abdominal wall Patient is a 61-year-old female with a history of chronic abdominal wound, here with rapidly progressing erythematous rash on entire abdomen that is cellulitis versus some sort of allergic dermatitis. Borderline leukocytosis, mildly elevated CRP, afebrile no signs of sepsis and not toxic. It is not itchy as I would expect with a dermatitis from an allergy. Also with migraine headache that is her typical migraine. -Continue antibiotics as above with clindamycin for antitoxin effect given rapidly progressing cellulitis, no evidence of gas formation seen on imaging -Appreciate infectious disease consultation -Appreciate general surgery consultation in case of need for exploration of abdominal wound and/or development of necrotizing fasciitis which it does not appear to be at this time -Toradol and Benadryl, as well as Zofran as needed for migraine headache Documented By: Marianela Mcmahon
[2017-11-03] MEDS ORDERED: IV FLUIDS COMPLETED PRN (16:30)
[2017-11-03] MEDS ORDERED: OPTIRAY 320 IV PRN (16:45)
--- NOTE | 2017-11-03 16:48 | Medical Consult ---
Consultation Date of Consultation: November 03, 2017. Attending Physician: Reason for Consultation: Abdominal wall cellulitis History of Present Illness 61-year-old female with history of previous abdominal surgery, with revision of scar in 2016, complicated by development of abdominal wall cellulitis and chronic abdominal wall wound. [facility] She is now admitted after picking other abdominal wall scar and then developing progressively worsening abdominal wall erythema. She has been started empirically on vancomycin, Zosyn, and clindamycin. She denies any significant fever or chills. No other new systemic complaints. Abdominal wall pain minimal at present. Past Medical/Surgical History Medical Problems: (1) Frontal headache Status: Acute (2) Hypertensive urgency Status: Acute (3) Post-op bleeding Status: Acute (4) Post-op pain Status: Acute Medical Problems: (1) Abdominal wall cellulitis (2) Cholecystectomy (3) Colonoscopy (4) Esophageal repair (5) ESOPHAGEAL STRICTURE (6) Esophagogastroduodenoscopy (7) HYPERTENSION NOS (8) HYPOTHYROIDISM NOS (9) Polymyalgia rheumatica (10) PURE HYPERCHOLESTEROLEM Family History Diabetes mellitus FH: cancer FH: lung disease Hypertension Social History Smoking Status: Never Smoker Smokeless Tobacco Use: No Alcohol Use: occasionally (very rare half glass of wine) Drug Use: none Marital Status: ( four years ago) Housing Status: lives with family 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 Nicergoline (Verified Allergy, Unknown, 08/26/17) Amoxicillin (Verified Adverse Reaction, Unknown, Diarrhea., 08/26/17) Current Inpatient Medications Current Inpatient Medications Medications (Trade) Dose Ordered Sig/Urvashi Route Start Time Stop Time Status Last Admin Dose Admin Miscellaneous Information (Consult) 1 ea UD PRN N/A 11/03/17 12:00 12/03/17 11:59 Pramipexole Dihydrochloride (miraPEX TAB) 0.125 mg HS PO 11/03/17 21:00 12/03/17 20:59 UNV Ferrous Sulfate (Feosol Tab) 325 mg QAM PO 11/04/17 09:00 12/04/17 08:59 UNV Lactobacillus Acidophilus (Floranex Tab) 1 tab BID PO 11/03/17 21:00 12/03/17 20:59 UNV Levothyroxine Sodium (Synthroid Tab) 125 mcg QAM PO 11/04/17 09:00 12/04/17 08:59 UNV Lisinopril (Zestril Tab) 20 mg DAILY PO 11/04/17 09:00 12/04/17 08:59 UNV Metoprolol Succinate (Toprol Xl Tab) 50 mg QAM PO 11/04/17 09:00 12/04/17 08:59 UNV Sertraline HCl (Zoloft Tab) 100 mg QAM PO 11/04/17 09:00 12/04/17 08:59 UNV Non-Formulary Medication (Cholestyramine ) 4 gm BID PO 11/03/17 21:00 12/03/17 20:59 UNV Vancomycin HCl 1000 mg/Sodium Chloride 270 ml @ 125 mls/hr NOW STAT IV 11/03/17 15:29 11/03/17 17:38 UNV Miscellaneous Information (Consult) 1 ea UD PRN N/A 11/03/17 15:30 12/03/17 15:29 UNV Clindamycin Phosphate 900 mg/ Dextrose 106 ml @ 100 mls/hr Q8H IV 11/03/17 15:30 11/13/17 15:29 UNV Piperacillin Sod/ Tazobactam Sod 4.5 gm/Dextrose 120 ml @ 200 mls/hr Q6H IV 11/03/17 16:15 11/13/17 16:14 UNV Miscellaneous Information (Consult) 1 ea UD PRN N/A 11/03/17 16:15 12/03/17 16:14 UNV Enoxaparin Sodium (Lovenox Inj) 40 mg QAM SQ 11/04/17 09:00 12/04/17 08:59 UNV Miscellaneous (Iv Fluids Completed) 1 ea PRN PRN N/A 11/03/17 16:30 11/03/18 16:29 UNV Ioversol (Optiray 320) 125 ml UD PRN IV 11/03/17 16:45 11/07/17 16:44 UNV Review of Systems All systems were reviewed and are negative except as per HPI Physical Exam Date Time Temp Pulse Resp B/P (MAP) Pulse Ox O2 Delivery O2 Flow Rate FiO2 11/03/17 15:28 77 16 137/97 97 Room Air 11/03/17 13:56 79 16 151/101 96 Room Air 11/03/17 12:35 70 16 154/97 97 Room Air 11/03/17 11:30 36.9 78 18 159/95 95 Room Air General Appearance: WD/WN, no apparent distress Head: normocephalic, atraumatic Eyes: normal inspection, EOMI, sclerae normal ENT: normal ENT inspection, hearing grossly normal, pharynx normal Neck: supple, no adenopathy, thyroid normal, trachea midline Respiratory/Chest: chest non-tender, lungs clear, normal breath sounds, no respiratory distress Cardiovascular: regular rate, rhythm, no gallop, no murmur Abdomen/GI: normal bowel sounds, non tender, soft, no organomegaly Back: normal inspection, no CVA tenderness Extremities/Musculoskelatal: normal inspection, no calf tenderness, normal capillary refill, non-tender Neurologic/Psych: alert, normal mood/affect, oriented x 3 Skin: normal color, no rash, + pertinent finding (Lower abdominal wall erythema from groin to mid abdomen) Lymphatic: no adenopathy Laboratory Results Date/Time Source Procedure Growth Status 11/03/17 11:54 Blood Blood Culture Pending Received 11/03/17 11:54 Blood Blood Culture Pending Received Last 24 Hours Test 11/03/17 11:40 11/03/17 11:54 11/03/17 12:30 White Blood Count 10.12 K/uL Red Blood Count 4.53 M/uL Hemoglobin 13.9 g/dL Hematocrit 42.5 % Mean Corpuscular Volume 93.8 fL Mean Corpuscular Hemoglobin 30.7 pg Mean Corpuscular Hemoglobin Concent 32.7 g/dl Platelet Count 180 K/uL Mean Platelet Volume 11.3 fL Neutrophils (%) (Auto) 83.2 % Lymphocytes (%) (Auto) 10.5 % Monocytes (%) (Auto) 4.2 % Eosinophils (%) (Auto) 1.7 % Basophils (%) (Auto) 0.2 % Neutrophils # (Auto) 8.42 K/uL Lymphocytes # (Auto) 1.06 K/uL Monocytes # (Auto) 0.43 K/uL Eosinophils # (Auto) 0.17 K/uL Basophils # (Auto) 0.02 K/uL RDW Standard Deviation 48.6 fL RDW Coefficient of Variation 14.1 % Immature Granulocyte % (Auto) 0.2 % Immature Granulocyte # (Auto) 0.02 K/uL Sodium Level 139 mmol/L Potassium Level 3.9 mmol/L Chloride Level 108 mmol/L Carbon Dioxide Level 25 mmol/L Anion Gap 6.0 mmol/L Blood Urea Nitrogen 12 mg/dl Creatinine 0.83 mg/dl Est Creatinine Clear Calc Drug Dose 93.1 ml/min Estimated GFR () 88.8 Estimated GFR (Non- 76.6 BUN/Creatinine Ratio 14.3 Random Glucose 96 mg/dl Calcium Level 9.0 mg/dl Total Bilirubin 0.7 mg/dl Aspartate Amino Transf (AST/SGOT) 27 U/L Alanine Aminotransferase (ALT/SGPT) 39 U/L Alkaline Phosphatase 131 U/L Total Creatine Kinase 57 U/L Creatine Kinase MB 0.9 ng/ml C-Reactive Protein 1.90 mg/dl Total Protein 7.8 gm/dl Albumin 3.6 gm/dl Globulin 4.2 gm/dl Albumin/Globulin Ratio 0.9 Creatine Kinase MB Ratio Lactic Acid Level 1.0 mmol/L Assessment & Plan 61-year-old female with recurrent abdominal wall cellulitis. Patient to be continued on IV antibiotics for now, clindamycin for 48 hours for antitoxin effect. Will adjust once final culture results are available. Will follow.
[2017-11-03 18:50] VITALS: BP 163/89; PULSE 78; TEMP 37.4; O2SAT 96
--- NOTE | 2017-11-03 19:03 | DIAGNOSTIC IMAGING REPORT ---
ABDOMEN AND PELVIS CT WITH IV CONTRAST CT DOSE: 785.45 mGy.cm HISTORY: Acute cellulitis. rapidly progressing cellulitis TECHNIQUE: Multiaxial CT images of the abdomen and pelvis were performed following the use of intravenous contrast. A dose lowering technique was utilized adhering to the principles of ALARA. COMPARISON STUDY: CT abdomen and pelvis 04/06/2015. FINDINGS: Mild subsegmental bibasilar atelectasis. No pneumatosis or pneumoperitoneum. Imaged inferior cardiac chambers are mildly enlarged. Prior cholecystectomy. Liver is otherwise unremarkable. Cyst of the anterior spleen measures 2.0 cm, new from prior exam likely reflecting a benign acquired splenic cyst. Pancreas demonstrates mild generalized atrophy. Adrenal glands are within normal limits. Innumerable bilateral renal sinus cysts and small subcentimeter parenchymal cysts of the kidneys are noted bilaterally. No definite renal calculi or hydronephrosis. The ureters are unremarkable. The bladder is decompressed. Prior hysterectomy. No aortic aneurysm or bulky adenopathy. Postsurgical changes of the gastroesophageal junction. No bowel obstruction. Colonic diverticulosis without diverticulitis. No mesenteric inflammatory changes or ascites. Normal appendix. Moderate subcutaneous stranding about the lower anterior abdominal wall with mild skin thickening. No drainable fluid collection. Bones appear intact and are mildly demineralized. Multilevel degenerative changes about the spine with lumbar dextro scoliosis. IMPRESSION: 1. No acute intra-abdominal or intrapelvic abnormality identified. 2. Colonic diverticulosis without diverticulitis. 3. Moderate subcutaneous stranding about the lower anterior abdominal wall with mild skin thickening, likely correlating with the clinical history of cellulitis. No drainable fluid collection. 4. Prior cholecystectomy and hysterectomy with postoperative changes of the gastroesophageal junction. Electronically signed by: Luis Cruz M.D. 11/03/2017 7:02 PM Dictated Date/Time: 11/03/2017 6:56 PM
[2017-11-03] MEDS ORDERED: KETOROLAC TROMETHAMINE 15 MG/ML VIAL IV PRN (19:15)
--- NOTE | 2017-11-03 19:19 | Surgery Consultation ---
Consultation Date of Consultation: November 03, 2017. Attending Physician: Marianela Mcmahon MD History of Present Illness pt was out gardening this AM and noticed a rash on her lower abdomen. this rapidly progressed over the course of the day to her upper abdomen. Had the exact same picture approx 1.5 years ago and was admitted for cellulitis. pt denies pain or itchiness of the area. has a somewhat chronic rosemary-umbilical wound from a distant hernia surgery. it has re-opened over the past month. the hernia surgery was many years ago. she is unsure if she had mesh. 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 Nicergoline (Verified Allergy, Unknown, 08/26/17) Amoxicillin (Verified Adverse Reaction, Unknown, Diarrhea., 08/26/17) Home Medications Scheduled Cholestyramine (Cholestyramine), 4 GM PO BID Lactobacillus Acidophilus (Lactinex), 1 TAB PO BID Levothyroxine Sodium (Synthroid), 125 MCG PO QAM Lisinopril (Zestril), 20 MG PO as needed Metoprolol Succinate (Toprol Xl), 50 MG PO QAM Sertraline (Zoloft), 100 MG PO QAM Miscellaneous Medications Acetamin/Butalbital/Caffeine (Fioricet), 1 TAB PO Current Inpatient Medications Current Inpatient Medications Medications (Trade) Dose Ordered Sig/Urvashi Route Start Time Stop Time Status Last Admin Dose Admin Pramipexole Dihydrochloride (miraPEX TAB) 0.125 mg HS PO 11/03/17 21:00 12/03/17 20:59 Ferrous Sulfate (Feosol Tab) 325 mg QAM PO 11/04/17 09:00 12/04/17 08:59 Lactobacillus Acidophilus (Floranex Tab) 1 tab BID PO 11/03/17 21:00 12/03/17 20:59 Levothyroxine Sodium (Synthroid Tab) 125 mcg DAILYBB PO 11/04/17 06:30 12/04/17 06:29 Lisinopril (Zestril Tab) 20 mg DAILY PO 11/04/17 09:00 12/04/17 08:59 Metoprolol Succinate (Toprol Xl Tab) 50 mg QAM PO 11/04/17 09:00 12/04/17 08:59 Sertraline HCl (Zoloft Tab) 100 mg QAM PO 11/04/17 09:00 12/04/17 08:59 Cholestyramine Resin (Questran Powder Light) 4 gm BID@1000,2200 PO 11/03/17 22:00 12/03/17 21:59 Vancomycin HCl 1500 mg/Sodium Chloride 530 ml @ 200 mls/hr Q10H IV 11/03/17 22:00 11/13/17 21:59 Miscellaneous Information (Consult) 1 ea UD PRN N/A 11/03/17 15:30 12/03/17 15:29 Clindamycin Phosphate 900 mg/ Dextrose 50 ml @ 100 mls/hr Q8H IV 11/03/17 18:30 11/13/17 18:29 Piperacillin Sod/ Tazobactam Sod 4.5 gm/Dextrose 120 ml @ 30 mls/hr Q8H IV 11/03/17 20:00 11/13/17 19:59 Miscellaneous Information (Consult) 1 ea UD PRN N/A 11/03/17 16:15 12/03/17 16:14 Enoxaparin Sodium (Lovenox Inj) 40 mg QAM SQ 11/04/17 09:00 12/04/17 08:59 UNV Miscellaneous (Iv Fluids Completed) 1 ea PRN PRN N/A 11/03/17 16:30 11/03/18 16:29 Ioversol (Optiray 320) 125 ml UD PRN IV 11/03/17 16:45 11/07/17 16:44 Ketorolac Tromethamine (Toradol Inj) 15 mg Q6H PRN IV 11/03/17 19:15 11/08/17 19:14 UNV Review of Systems Abdomen: + problem reported (rash) Neurologic: + memory loss (s/p cva) Integumentary: + rash Physical Exam Date Time Temp Pulse Resp B/P (MAP) Pulse Ox O2 Delivery O2 Flow Rate FiO2 11/03/17 18:50 37.4 78 18 163/89 (113) 96 11/03/17 17:07 82 18 141/88 97 11/03/17 15:28 77 16 137/97 97 Room Air 11/03/17 13:56 79 16 151/101 96 Room Air 11/03/17 12:35 70 16 154/97 97 Room Air 11/03/17 11:30 36.9 78 18 159/95 95 Room Air General Appearance: WD/WN, no apparent distress Head: normocephalic, atraumatic Eyes: normal inspection, EOMI ENT: hearing grossly normal Neck: supple, no JVD Respiratory/Chest: no respiratory distress, no accessory muscle use Abdomen/GI: non tender, soft, + pertinent finding (mottled maculopapular rash vs irregular cellulitis. slightly warm to touch. nontender. small scab at umbilicus) Neurologic/Psych: alert, oriented x 3 Skin: + rash (see abdominal exam. no other areas noted) Laboratory Results Last 24 Hours Test 11/03/17 11:40 11/03/17 11:54 11/03/17 12:30 11/03/17 18:50 White Blood Count 10.12 K/uL Red Blood Count 4.53 M/uL Hemoglobin 13.9 g/dL Hematocrit 42.5 % Mean Corpuscular Volume 93.8 fL Mean Corpuscular Hemoglobin 30.7 pg Mean Corpuscular Hemoglobin Concent 32.7 g/dl Platelet Count 180 K/uL Mean Platelet Volume 11.3 fL Neutrophils (%) (Auto) 83.2 % Lymphocytes (%) (Auto) 10.5 % Monocytes (%) (Auto) 4.2 % Eosinophils (%) (Auto) 1.7 % Basophils (%) (Auto) 0.2 % Neutrophils # (Auto) 8.42 K/uL Lymphocytes # (Auto) 1.06 K/uL Monocytes # (Auto) 0.43 K/uL Eosinophils # (Auto) 0.17 K/uL Basophils # (Auto) 0.02 K/uL RDW Standard Deviation 48.6 fL RDW Coefficient of Variation 14.1 % Immature Granulocyte % (Auto) 0.2 % Immature Granulocyte # (Auto) 0.02 K/uL Sodium Level 139 mmol/L Potassium Level 3.9 mmol/L Chloride Level 108 mmol/L Carbon Dioxide Level 25 mmol/L Anion Gap 6.0 mmol/L Blood Urea Nitrogen 12 mg/dl Creatinine 0.83 mg/dl Est Creatinine Clear Calc Drug Dose 93.1 ml/min Estimated GFR () 88.8 Estimated GFR (Non- 76.6 BUN/Creatinine Ratio 14.3 Random Glucose 96 mg/dl Calcium Level 9.0 mg/dl Total Bilirubin 0.7 mg/dl Aspartate Amino Transf (AST/SGOT) 27 U/L Alanine Aminotransferase (ALT/SGPT) 39 U/L Alkaline Phosphatase 131 U/L Total Creatine Kinase 57 U/L Creatine Kinase MB 0.9 ng/ml C-Reactive Protein 1.90 mg/dl Total Protein 7.8 gm/dl Albumin 3.6 gm/dl Globulin 4.2 gm/dl Albumin/Globulin Ratio 0.9 Creatine Kinase MB Ratio Lactic Acid Level 1.0 mmol/L Assessment & Plan cellulitis--? infectious vs allergic. does not appear typical of infectious cellulitis. agree with admission and ct scan would empirically start antibiotics--ID consulted would consider short course of steroids +/- benedryl area of cellulitis marked no abcess at this time. will follow along.
[2017-11-03] MEDS: CLINDAMYCIN IV 900 MG in DEXTROSE 5% 50ML 44 ML IV SCH (19:34)
[2017-11-03 20:00] VITALS: BP 163/89; PULSE 78; TEMP 37.4; O2SAT 96; Ht 177.8 cm; Wt 101.7 kg
[2017-11-03] MEDS: PIPERACILL/TAZOBAC IV 4.5 GM in DEXTROSE 5% 100ML 100 ML IV SCH (20:20)
--- NOTE | 2017-11-03 20:51 | Pharmacy Progress Note ---
Pharmacy Abx Dose Short Note Date of Service November 03, 2017. Assessment & Plan Item Value Date Time Blood Culture Received 11/03/17 1154 Blood Pending Blood Culture Received 11/03/17 1154 Blood Pending Creatinine 0.83 mg/dl 11/03/17 1140 Est Creatinine Clear Calc Drug Dose 93.1 ml/min 11/03/17 1140 Assessment 61 year old female receiving broad spectrum antibiotics (VANC/ZOSYN/CLINDA) for treatment of SSTI * Day # 1 of antimicrobial therapy. Plan Vancomycin * Estimated p'kinetics: Vd~0.7L/kg, Ke~0.0816hr-1, T1/2~8.5h * LOADING DOSE: VANC 2500mg (~25mg/kg) IV x 1 in ED * MAINTENANCE DOSE: VANC 1500mg (~15mg/kg) IV every 10 hours * Goal trough level: ~15 mcg/mL * VANC Trough @ Css prior to 11/05/17 0400 dose ZOSYN: 4.5g IV load, then 4.5g IV every 8 hours for est GFR >20mL/min. Pharmacy will continue to follow and will adjust dose/frequency as necessary. Thank you.
[2017-11-03] MEDS: ENOXAPARIN 40 MG/0.4 ML SYR SQ SCH (21:00)
[2017-11-03] MEDS: LACTOBACILLUS ACIDOPHILUS (FLORANEX) TAB PO SCH (21:18)
[2017-11-03] MEDS: PRAMIPEXOLE DIHYDROCHLORIDE 0.25MG TAB PO SCH (21:19)
[2017-11-03 21:42] VITALS: PULSE 88; O2SAT 96
[2017-11-03] MEDS: CHOLESTYRAMINE LIGHT 4 GM PKT PO SCH (22:00)
[2017-11-03] MEDS: VANCOMYCIN IV 1,500 MG in SODIUM CHLORIDE 0.9% 500ML 500 ML IV SCH (22:10)
[2017-11-03 23:28] VITALS: BP 131/77; PULSE 81; TEMP 36.9; O2SAT 94
[2017-11-04] MEDS: CLINDAMYCIN IV 900 MG in DEXTROSE 5% 50ML 44 ML IV SCH ×3 (03:19→17:05)
[2017-11-04 03:42] VITALS: BP 129/76; PULSE 72; TEMP 37; O2SAT 95
[2017-11-04] MEDS: PIPERACILL/TAZOBAC IV 4.5 GM in DEXTROSE 5% 100ML 100 ML IV SCH ×3 (04:10→20:47)
[2017-11-04] MEDS: LEVOTHYROXINE 125 MCG TAB PO SCH (05:48)
[2017-11-04 06:13] LABS: HEMATOCRIT 38.8 % (37-47); HEMOGLOBIN 12.7 g/dL (12.0-16.0); MEAN CELL VOLUME 93.3 fL (80-100); MEAN CORPUSCULAR HEMOGLOBIN 30.5 pg (25-34); MEAN CORPUSCULAR HGB CONC 32.7 g/dl (32-36); PLATELET COUNT 140 K/uL (130-400); RED CELL DISTRIBUTION WIDTH CV 14.1 % (11.5-14.5); RED CELL DISTRIBUTION WIDTH SD 48.1 fL (36.4-46.3); WHITE BLOOD COUNT 5.53 K/uL (4.8-10.8)
[2017-11-04 06:29] LABS: CALCIUM 8.3 mg/dl (8.5-10.1); CREATININE 0.87 mg/dl (0.60-1.20); POTASSIUM 3.8 mmol/L (3.5-5.1)
[2017-11-04 07:28] VITALS: BP 147/87; PULSE 79; TEMP 37; O2SAT 95
[2017-11-04] MEDS: CHOLESTYRAMINE LIGHT 4 GM PKT PO SCH ×2 (08:50→20:55)
[2017-11-04] MEDS: LISINOPRIL 20 MG TAB PO SCH (08:50)
[2017-11-04] MEDS: VANCOMYCIN IV 1,500 MG in SODIUM CHLORIDE 0.9% 500ML 500 ML IV SCH ×2 (08:50→17:46)
[2017-11-04] MEDS: SERTRALINE HCL 100 MG TAB PO SCH (08:50)
[2017-11-04] MEDS: LACTOBACILLUS ACIDOPHILUS (FLORANEX) TAB PO SCH ×2 (08:51→20:52)
[2017-11-04] MEDS: FERROUS SULFATE 325 MG TAB PO SCH (08:51)
[2017-11-04] MEDS: METOPROLOL SUCC 50MG EXT REL TAB PO SCH (08:51)
--- NOTE | 2017-11-04 09:53 | Surgery Progress Note ---
Surgery Progress Note Date of Service November 04, 2017. Subjective + feeling well, + ambulating, No complaints, No nausea, No vomiting Patient resting comfortably in bed Objective Vital Signs: Date Time Temp Pulse Resp B/P (MAP) Pulse Ox O2 Delivery O2 Flow Rate FiO2 11/04/17 07:28 37.0 79 22 147/87 (107) 95 Room Air 11/04/17 04:00 CPAP 11/04/17 03:42 37.0 72 18 129/76 (93) 95 CPAP 11/04/17 00:00 CPAP 11/03/17 23:28 36.9 81 20 131/77 (95) 94 CPAP 11/03/17 21:42 88 96 11/03/17 20:00 37.4 78 18 163/89 96 Room Air 11/03/17 18:50 37.4 78 18 163/89 (113) 96 11/03/17 17:07 82 18 141/88 97 11/03/17 15:28 77 16 137/97 97 Room Air 11/03/17 13:56 79 16 151/101 96 Room Air 11/03/17 12:35 70 16 154/97 97 Room Air 11/03/17 11:30 36.9 78 18 159/95 95 Room Air General Appearance: WD/WN, no apparent distress Abdomen: + pertinent finding (area of redness marked yesterday- redness is receding/improving even starting to fade near umbilicus. ) Laboratory Results: Results Past 24 Hours Test 11/03/17 11:40 11/03/17 11:54 11/03/17 12:30 11/03/17 18:50 Range/Units White Blood Count 10.12 4.8-10.8 K/uL Red Blood Count 4.53 4.2-5.4 M/uL Hemoglobin 13.9 12.0-16.0 g/dL Hematocrit 42.5 37-47 % Mean Corpuscular Volume 93.8 80-100 fL Mean Corpuscular Hemoglobin 30.7 25-34 pg Mean Corpuscular Hemoglobin Concent 32.7 32-36 g/dl Platelet Count 180 130-400 K/uL Mean Platelet Volume 11.3 7.4-10.4 fL Neutrophils (%) (Auto) 83.2 % Lymphocytes (%) (Auto) 10.5 % Monocytes (%) (Auto) 4.2 % Eosinophils (%) (Auto) 1.7 % Basophils (%) (Auto) 0.2 % Neutrophils # (Auto) 8.42 1.4-6.5 K/uL Lymphocytes # (Auto) 1.06 1.2-3.4 K/uL Monocytes # (Auto) 0.43 0.11-0.59 K/uL Eosinophils # (Auto) 0.17 0-0.5 K/uL Basophils # (Auto) 0.02 0-0.2 K/uL RDW Standard Deviation 48.6 36.4-46.3 fL RDW Coefficient of Variation 14.1 11.5-14.5 % Immature Granulocyte % (Auto) 0.2 % Immature Granulocyte # (Auto) 0.02 0.00-0.02 K/uL Sodium Level 139 136-145 mmol/L Potassium Level 3.9 3.5-5.1 mmol/L Chloride Level 108 98-107 mmol/L Carbon Dioxide Level 25 21-32 mmol/L Anion Gap 6.0 3-11 mmol/L Blood Urea Nitrogen 12 7-18 mg/dl Creatinine 0.83 0.60-1.20 mg/dl Est Creatinine Clear Calc Drug Dose 93.1 ml/min Estimated GFR () 88.8 Estimated GFR (Non- 76.6 BUN/Creatinine Ratio 14.3 10-20 Random Glucose 96 70-99 mg/dl Calcium Level 9.0 8.5-10.1 mg/dl Total Bilirubin 0.7 0.2-1 mg/dl Aspartate Amino Transf (AST/SGOT) 27 15-37 U/L Alanine Aminotransferase (ALT/SGPT) 39 12-78 U/L Alkaline Phosphatase 131 45-117 U/L Total Creatine Kinase 57 26-192 U/L Creatine Kinase MB 0.9 0.5-3.6 ng/ml C-Reactive Protein 1.90 0-0.29 mg/dl Total Protein 7.8 6.4-8.2 gm/dl Albumin 3.6 3.4-5.0 gm/dl Globulin 4.2 2.5-4.0 gm/dl Albumin/Globulin Ratio 0.9 0.9-2 Creatine Kinase MB Ratio 0-3.0 Lactic Acid Level 1.0 0.4-2.0 mmol/L Prothrombin Time 10.1 9.0-12.0 SECONDS Prothromb Time International Ratio 1.0 0.9-1.1 Test 11/04/17 05:38 Range/Units White Blood Count 5.53 4.8-10.8 K/uL Red Blood Count 4.16 4.2-5.4 M/uL Hemoglobin 12.7 12.0-16.0 g/dL Hematocrit 38.8 37-47 % Mean Corpuscular Volume 93.3 80-100 fL Mean Corpuscular Hemoglobin 30.5 25-34 pg Mean Corpuscular Hemoglobin Concent 32.7 32-36 g/dl RDW Standard Deviation 48.1 36.4-46.3 fL RDW Coefficient of Variation 14.1 11.5-14.5 % Platelet Count 140 130-400 K/uL Mean Platelet Volume 11.0 7.4-10.4 fL Sodium Level 142 136-145 mmol/L Potassium Level 3.8 3.5-5.1 mmol/L Chloride Level 108 98-107 mmol/L Carbon Dioxide Level 25 21-32 mmol/L Anion Gap 8.0 3-11 mmol/L Blood Urea Nitrogen 13 7-18 mg/dl Creatinine 0.87 0.60-1.20 mg/dl Est Creatinine Clear Calc Drug Dose 88.9 ml/min Estimated GFR () 83.9 Estimated GFR (Non- 72.4 BUN/Creatinine Ratio 14.4 10-20 Random Glucose 109 70-99 mg/dl Calcium Level 8.3 8.5-10.1 mg/dl Microbiology Results 11/03/17 Blood Culture, Received Pending 11/03/17 Blood Culture, Received Pending Assessment & Plan 11/04/2017 Patient seen and examined with Dr. Cabrera. Morning labs reviewed, WBC improved from last evening (10.12 on admission, 5.53 this AM) Area of redness marked yesterday, redness receding, improving- beginning to fade. Patient reports that she will pick at site of previous umbilical hernia repair- chronic wound. Will add BID Santyl ointment- apply to affected area, cover with gauze dressing. Discussed use of compression fabric at abdomen to prevent pt from picking at wound. Patient verbalized understanding and agreement. No surgical intervention required. General Surgery will sign off at this time. 11/04/17 as above clinically doing ok wbc decreased to 5,[address] shows no abcess no indication for surgery at this time rec santyl for the scab/discussed out pt care of the open area will sign off.please call if we can assist. 11/03/2017 cellulitis--? infectious vs allergic. does not appear typical of infectious cellulitis. agree with admission and ct scan would empirically start antibiotics--ID consulted would consider short course of steroids +/- benedryl area of cellulitis marked no abcess at this time. will follow along.
[2017-11-04 12:06] VITALS: BP 119/73; PULSE 73; TEMP 36.9; O2SAT 93
[2017-11-04 14:39] VITALS: BP 99/65; PULSE 64; TEMP 37.1; O2SAT 93
[2017-11-04] MEDS ORDERED: HYDROCODONE/ACETAMIN 5/325MG TAB PO PRN (17:45)
[2017-11-04] MEDS: ONDANSETRON INJ 2 MG/ML 2 ML VIAL IV PRN (17:46)
[2017-11-04 19:34] VITALS: BP 116/77; PULSE 60; TEMP 36.9; O2SAT 93
[2017-11-04] MEDS: KETOROLAC TROMETHAMINE 30 MG/ML VIAL IV. PRN (19:46)
[2017-11-04] MEDS: COLLAGENASE OINT 30 GM TUBE EXT SCH (20:51)
[2017-11-04] MEDS: ENOXAPARIN 40 MG/0.4 ML SYR SQ SCH (20:52)
[2017-11-04] MEDS: PRAMIPEXOLE DIHYDROCHLORIDE 0.25MG TAB PO SCH (20:52)
--- NOTE | 2017-11-04 23:29 | Progress Note ---
Subjective Date of Service: November 04, 2017. Subjective Pt evaluation today including: conversation w/ patient, physical exam, chart review, lab review, review of studies (CT abd/pelvis), review of inpatient medication list Pain: mild supraumbilical pain - started this afternoon PO Intake: fair Voiding: no voiding problems reports the rash on abdominal wall is improved today no fevers or chills had similar incident in the past involving rash/suspected cellulitis on abdominal wall - rash resolved with 1 week of antibiotic therapy doesn't recall anything getting on her skin and denies any new medications Problem List Medical Problems: (1) Frontal headache Status: Acute (2) Hypertensive urgency Status: Acute (3) Post-op bleeding Status: Acute (4) Post-op pain Status: Acute Review of Systems Constitutional: No fever, No chills Respiratory: No shortness of breath Cardiac: No chest pain Abdomen: + see HPI, + pain, No nausea, No vomiting, No diarrhea, No constipation Objective Vital Signs Date Time Temp Pulse Resp B/P (MAP) Pulse Ox O2 Delivery O2 Flow Rate FiO2 11/04/17 19:34 36.9 60 18 116/77 (90) 93 Room Air 11/04/17 16:30 Room Air 11/04/17 14:39 37.1 64 20 99/65 (76) 93 11/04/17 12:15 Room Air 11/04/17 12:06 36.9 73 20 119/73 (88) 93 Room Air 11/04/17 08:30 Room Air 11/04/17 07:28 37.0 79 22 147/87 (107) 95 Room Air 11/04/17 04:00 CPAP 11/04/17 03:42 37.0 72 18 129/76 (93) 95 CPAP 11/04/17 00:00 CPAP 11/03/17 23:28 36.9 81 20 131/77 (95) 94 CPAP 11/03/17 21:42 88 96 Physical Exam General Appearance: no apparent distress ENT: pharynx normal Neck: no JVD Respiratory/Chest: lungs clear, no respiratory distress, no accessory muscle use Cardiovascular: regular rate, rhythm, no gallop, no murmur Abdomen: normal bowel sounds, soft, no organomegaly, + tenderness (epigastric region) Extremities: no pedal edema Neurologic/Psychiatric: alert, normal mood/affect, oriented x 3 Skin: + pertinent finding (very irregularly shaped area of warm erythema with scattered papules and raised patches covering the majority of the abdominal wall ; there are multiple areas of sparing with normal skin in those regions; around the umbilicus is a chronic wound/ulceration with dried discharge but no jeanie pus) Laboratory Results Last 24 Hours Test 11/04/17 05:38 White Blood Count 5.53 K/uL Red Blood Count 4.16 M/uL Hemoglobin 12.7 g/dL Hematocrit 38.8 % Mean Corpuscular Volume 93.3 fL Mean Corpuscular Hemoglobin 30.5 pg Mean Corpuscular Hemoglobin Concent 32.7 g/dl RDW Standard Deviation 48.1 fL RDW Coefficient of Variation 14.1 % Platelet Count 140 K/uL Mean Platelet Volume 11.0 fL Sodium Level 142 mmol/L Potassium Level 3.8 mmol/L Chloride Level 108 mmol/L Carbon Dioxide Level 25 mmol/L Anion Gap 8.0 mmol/L Blood Urea Nitrogen 13 mg/dl Creatinine 0.87 mg/dl Est Creatinine Clear Calc Drug Dose 88.9 ml/min Estimated GFR () 83.9 Estimated GFR (Non- 72.4 BUN/Creatinine Ratio 14.4 Random Glucose 109 mg/dl Calcium Level 8.3 mg/dl Assessment and Plan 61yo female - 1. abdominal wall cellulitis vs localized reaction vs other - suspect the former even despite the very irregular shape of this rash. lack of eosinophilia on cbc argues again a dermatological reaction. this could be a strep rash as those are known to be raised and even sand-paper like. cont current IV antibiotics for now appreciate gen surg consult 2. HTN - controlled; cont home meds 3. hypothyroidism - cont synthroid; most recent TSH wnl 4. DVT proph - lovenox 40mg daily 5. periumbilical ulceration - local wound care; santyl's Continued [facility] stay due to: multiple IV medications needed Discharge planning: home
[2017-11-04 23:39] VITALS: BP 103/69; PULSE 72; TEMP 36.8; O2SAT 93
[2017-11-05] MEDS: CLINDAMYCIN IV 900 MG in DEXTROSE 5% 50ML 44 ML IV SCH ×2 (02:30→10:20)
[2017-11-05] MEDS ORDERED: VANCOMYCIN TROUGH ONE (03:30)
[2017-11-05 03:53] LABS: HEMATOCRIT 39.3 % (37-47); HEMOGLOBIN 12.6 g/dL (12.0-16.0); MEAN CELL VOLUME 93.3 fL (80-100); MEAN CORPUSCULAR HEMOGLOBIN 29.9 pg (25-34); MEAN CORPUSCULAR HGB CONC 32.1 g/dl (32-36); PLATELET COUNT 147 K/uL (130-400); RED CELL DISTRIBUTION WIDTH SD 48.1 fL (36.4-46.3); WHITE BLOOD COUNT 4.59 K/uL (4.8-10.8)
[2017-11-05] MEDS: PIPERACILL/TAZOBAC IV 4.5 GM in DEXTROSE 5% 100ML 100 ML IV SCH ×3 (04:09→20:01)
[2017-11-05] MEDS: VANCOMYCIN IV 1,500 MG in SODIUM CHLORIDE 0.9% 500ML 500 ML IV SCH (04:10)
[2017-11-05 04:16] LABS: CALCIUM 8.3 mg/dl (8.5-10.1); CREATININE 0.89 mg/dl (0.60-1.20)
[2017-11-05] MEDS: LEVOTHYROXINE 125 MCG TAB PO SCH (06:03)
[2017-11-05 07:04] VITALS: BP 110/62; PULSE 49; TEMP 36.4; O2SAT 92
[2017-11-05] MEDS: COLLAGENASE OINT 30 GM TUBE EXT SCH ×2 (07:33→21:18)
[2017-11-05] MEDS: METOPROLOL SUCC 50MG EXT REL TAB PO SCH (07:33)
[2017-11-05] MEDS: LISINOPRIL 20 MG TAB PO SCH (07:33)
[2017-11-05] MEDS: SERTRALINE HCL 100 MG TAB PO SCH (07:33)
[2017-11-05] MEDS: LACTOBACILLUS ACIDOPHILUS (FLORANEX) TAB PO SCH ×2 (07:34→16:49)
[2017-11-05] MEDS: FERROUS SULFATE 325 MG TAB PO SCH (07:34)
[2017-11-05] MEDS: CHOLESTYRAMINE LIGHT 4 GM PKT PO SCH ×2 (07:38→21:19)
--- NOTE | 2017-11-05 09:10 | Pharmacy Progress Note ---
Pharmacy Abx Dose Short Note Date of Service November 05, 2017. Assessment & Plan Assessment * 61 year old female receiving VANCOMYCIN + ZOSYN + CLINDAMYCIN IV for treatment of abdominal wall cellulitis near site of previous umbilical hernia repair. * Day # 3 of antimicrobial therapy * Afebrile, no leukocytosis noted on today's labs, WBC has been trending down each day. Abdominal wall rash reported to be improving. * Renal fxn stable based upon SCr, U.O. is not being measured but no voiding problems reported Plan Vancomycin * Trough level of 21.7 mcg/mL is supratherapeutic. Level was drawn prior to 4th maintenance dose. Prior doses were hung at appropriate times. Level was drawn at the appropriate time. * Change to 1250 mg (~12.3mg/kg) IV every 12 hours. Will delay giving next dose until 2100 this evening to allow level to reach ~15-16 before redosing. * Goal trough level for skin/skin structure infxn : 10 to 20 mcg/mL * Will recheck trough level in 2 days with 4th dose of new regimen if therapy to continue. Zosyn * eCrCl > 20cc/min, BMI 32.2; OK to continue 4.5gm ext-infusion Q 8 hours One might consider discontinuation of Clindamycin at this time in order to deescalate therapy. Pharmacy will continue to follow and will adjust dose/frequency as necessary. Thank you.
[2017-11-05] MEDS: ONDANSETRON INJ 2 MG/ML 2 ML VIAL IV PRN ×2 (10:37→16:50)
[2017-11-05] MEDS: KETOROLAC TROMETHAMINE 30 MG/ML VIAL IV. PRN (10:37)
[2017-11-05 11:15] VITALS: BP 93/60; PULSE 49; TEMP 36.8; O2SAT 91
[2017-11-05] MEDS: LOPERAMIDE HCL 2 MG CAP PO PRN ×2 (13:02→21:18)
[2017-11-05] MEDS ORDERED: METHYLPREDNISOLONE IV 40 MG in SYRINGE 0 ML IV ONE (13:15)
[2017-11-05 14:43] VITALS: BP 117/78; PULSE 60; TEMP 36.6; O2SAT 94
--- NOTE | 2017-11-05 15:59 | Progress Note ---
Subjective Date of Service: November 05, 2017. Subjective Pt evaluation today including: conversation w/ patient, physical exam, chart review, lab review Pain: epigastric region - same location as yesterday; relieved w/ toradol PO Intake: eating decently Voiding: no voiding problems the redness and rash on her abdominal wall is "itchy today" using benadryl fairly frequently no fevers/chills did have a loose bowel movement this am but she states "I have this all the time " and she did not take her questran today had mild nausea this am relieved with anti-emetic Problem List Medical Problems: (1) Frontal headache Status: Acute (2) Hypertensive urgency Status: Acute (3) Post-op bleeding Status: Acute (4) Post-op pain Status: Acute Review of Systems Respiratory: No shortness of breath, No dyspnea on exertion Cardiac: No chest pain, No orthopnea Abdomen: + see HPI, + pain, + nausea, + diarrhea, No vomiting, No constipation Objective Vital Signs Date Time Temp Pulse Resp B/P (MAP) Pulse Ox O2 Delivery O2 Flow Rate FiO2 11/05/17 14:43 36.6 60 16 117/78 (91) 94 Room Air 11/05/17 11:15 36.8 49 16 93/60 (71) 91 Room Air 11/05/17 08:45 Room Air 11/05/17 07:04 36.4 49 16 110/62 (78) 92 Room Air 11/05/17 00:00 CPAP 11/04/17 23:39 36.8 72 18 103/69 (80) 93 Room Air 11/04/17 20:00 Room Air CPAP 11/04/17 19:34 36.9 60 18 116/77 (90) 93 Room Air 11/04/17 16:30 Room Air Physical Exam General Appearance: no apparent distress ENT: pharynx normal Neck: no JVD Respiratory/Chest: lungs clear, no respiratory distress, no accessory muscle use Cardiovascular: regular rate, rhythm, no gallop, no murmur Abdomen: normal bowel sounds, soft, no organomegaly, + pertinent finding ( minimal tenderness over an area of erythema superior to the umbilicus; this area is mildly warm to palpation and modestly swollen ) Extremities: no pedal edema Neurologic/Psychiatric: alert, oriented x 3 Skin: + rash (extensive irregular appearing erythematous, macular-papular rash over abdominal wall; it is no worse than yesterday, and perhaps slightly smaller in size; the rash continues to be raised in multiple locations and has a sand-paper texture to it; there is minimal warmth over the largest patch that is superior to the umbilicus but inferior to the chest; there is a large, scabbed ulceration adjacent to the umbilicus - unchanged from yesterday; no new areas of skin rash on legs, arms, back, groin, palms, feet, etc ) Laboratory Results Last 24 Hours Test 11/05/17 03:39 White Blood Count 4.59 K/uL Red Blood Count 4.21 M/uL Hemoglobin 12.6 g/dL Hematocrit 39.3 % Mean Corpuscular Volume 93.3 fL Mean Corpuscular Hemoglobin 29.9 pg Mean Corpuscular Hemoglobin Concent 32.1 g/dl RDW Standard Deviation 48.1 fL RDW Coefficient of Variation 14.0 % Platelet Count 147 K/uL Mean Platelet Volume 11.0 fL Sodium Level 143 mmol/L Potassium Level 4.0 mmol/L Chloride Level 113 mmol/L Carbon Dioxide Level 24 mmol/L Anion Gap 6.0 mmol/L Blood Urea Nitrogen 12 mg/dl Creatinine 0.89 mg/dl Est Creatinine Clear Calc Drug Dose 86.8 ml/min Estimated GFR () 81.6 Estimated GFR (Non- 70.4 BUN/Creatinine Ratio 13.6 Random Glucose 103 mg/dl Calcium Level 8.3 mg/dl Vancomycin Level Trough 21.7 mcg/ml Assessment and Plan 61yo female - 1. abdominal wall cellulitis vs localized reaction vs other - overall the rash may be slightly better today. It is much more pruritic today than yesterday; this may argue that there is an allergic/inflammatory component to it. The rash is very, very irregular and odd-appearing for a straight-forward cellulitis. She has had no fever or leukocytosis. CRP was minimally elevated. Will d/c clindamycin; leave zosyn & vanco for now. CT abd/pelvis did not show nec fasc or abscess and clinically there is no evidence of either on exam today. In the event we are dealing with a component of allergic/inflammatory process will give solumedrol 40mg IV x 1 and reassess the rash later today. 2. HTN - controlled; cont home meds 3. hypothyroidism - cont synthroid; most recent TSH wnl 4. DVT proph - lovenox 40mg daily 5. periumbilical ulceration - local wound care; santyl's; stable. 6. 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 If diarrhea acutely worsens because of abx then c. diff testing would be indicated. Increase lactinex in meantime and add immodium prn. 7. pain control - toradol IV prn; low-dose oral narcotic prn. Continued [facility] stay due to: multiple IV medications needed Discharge planning: home
[2017-11-05 19:44] VITALS: BP 143/88; PULSE 56; TEMP 36.9; O2SAT 90
[2017-11-05] MEDS: PRAMIPEXOLE DIHYDROCHLORIDE 0.25MG TAB PO SCH (21:19)
[2017-11-05] MEDS: ENOXAPARIN 40 MG/0.4 ML SYR SQ SCH (21:20)
[2017-11-05] MEDS: VANCOMYCIN IV 1,250 MG in SODIUM CHLORIDE 0.9% 250ML 250 ML IV SCH (21:28)
[2017-11-05 23:30] VITALS: BP 157/90; PULSE 63; TEMP 36.7; O2SAT 92
[2017-11-06] MEDS: ONDANSETRON INJ 2 MG/ML 2 ML VIAL IV PRN (03:07)
[2017-11-06] MEDS: KETOROLAC TROMETHAMINE 30 MG/ML VIAL IV. PRN ×2 (03:07→09:48)
[2017-11-06] MEDS: PIPERACILL/TAZOBAC IV 4.5 GM in DEXTROSE 5% 100ML 100 ML IV SCH ×2 (04:04→11:34)
[2017-11-06 05:45] LABS: HEMATOCRIT 40.3 % (37-47); LYMPH % 9.9 %; LYMPH ABS # 0.54 K/uL (1.2-3.4); MEAN CELL VOLUME 92.9 fL (80-100); MEAN CORPUSCULAR HGB CONC 32.3 g/dl (32-36); MEAN PLATELET VOLUME 10.8 fL (7.4-10.4); MONO % 2.2 %; MONO ABS # 0.12 K/uL (0.11-0.59); NEUT % 87.9 %; NEUT ABS # 4.79 K/uL (1.4-6.5); PLATELET COUNT 172 K/uL (130-400); RED CELL DISTRIBUTION WIDTH CV 13.8 % (11.5-14.5); RED CELL DISTRIBUTION WIDTH SD 46.9 fL (36.4-46.3); WHITE BLOOD COUNT 5.45 K/uL (4.8-10.8)
[2017-11-06 06:59] VITALS: BP 146/90; PULSE 62; TEMP 36.8; O2SAT 94
[2017-11-06] MEDS: LEVOTHYROXINE 125 MCG TAB PO SCH (07:51)
[2017-11-06 08:00] VITALS: O2SAT 94
[2017-11-06] MEDS: LACTOBACILLUS ACIDOPHILUS (FLORANEX) TAB PO SCH ×2 (08:30→11:33)
[2017-11-06] MEDS: FERROUS SULFATE 325 MG TAB PO SCH (08:30)
[2017-11-06] MEDS: SERTRALINE HCL 100 MG TAB PO SCH (08:31)
[2017-11-06] MEDS: LISINOPRIL 20 MG TAB PO SCH (08:31)
[2017-11-06] MEDS: METOPROLOL SUCC 50MG EXT REL TAB PO SCH (08:31)
[2017-11-06] MEDS: COLLAGENASE OINT 30 GM TUBE EXT SCH (08:32)
[2017-11-06 08:40] VITALS: BP 132/79; PULSE 73
[2017-11-06] MEDS: VANCOMYCIN IV 1,250 MG in SODIUM CHLORIDE 0.9% 250ML 250 ML IV SCH (08:56)
[2017-11-06] MEDS ORDERED: LCTX PO (09:08)
[2017-11-06] MEDS ORDERED: MRP25 PO (09:08)
[2017-11-06] MEDS ORDERED: DIPH25CA65 PO (09:08)
[2017-11-06] MEDS ORDERED: AMOX875T PO (09:08)
[2017-11-06] MEDS ORDERED: FRRS300 PO (09:08)
[2017-11-06] MEDS ORDERED: HYDR-5688 PO (09:08)
[2017-11-06] MEDS ORDERED: DXY100 PO (09:08)
[2017-11-06] MEDS ORDERED: PRED50TA PO (09:08)
[2017-11-06] MEDS ORDERED: SNTO30 EXT (09:11)
--- NOTE | 2017-11-06 09:21 | Discharge Instructions ---
Discharge Instructions Date of Service November 06, 2017. Admission Reason for Admission: Abdominal Wall Cellulitis Discharge Discharge Diagnosis / Problem: Abdominal Wall Cellulitis +/- reaction to something in the environment Discharge Goals Goal(s): Learn about illness, Diagnostic testing, Therapeutic intervention Activity Recommendations Activity Limitations: resume your previous activity . Instructions / Follow-Up Instructions / Follow-Up From Dr. Degroot - 1. Rash on abdominal wall - * this was thought to be cellulitis (skin infection) and/or an allergic reaction to something in the environment * it responded rapidly to steroids which would suggest an allergic/inflammatory component * to treat for both possibilities (infection and allergic reaction) please do the following - * take augmentin (amoxicillin-clavulanate) 1 tablet twice a day for 7 days; start this TONIGHT * like all other antibiotics augmentin can cause diarrhea * take doxycycline 100mg twice a day for 7 days; start this TONIGHT * doxycycline can cause heartburn as well as a rash if you go out in the sun * if you go out in the sun please use sunscreen and cover up * take prednisone 50mg once daily for 5 days; start this TODAY upon arrival home ; take the prednisone with food 2. Diarrhea prevention - * continue your cholestyramine powder twice a day as previous * increase your lactinex to 4 tabs three times a day and take for 10 days * I sent a prescription for the lactinex to your pharmacy for you * if your diarrhea worsens you would need to see your family doctor right away 3. Ulceration around your umbilicus (belly button) - please use Santyl's cream twice a day in thin amounts for about 7-10 days. Cover the area with a dry dressing and change the dressing when you place the Santyl's. Please have your family doctor recheck this area at time of follow-up. If the wound is not improving I would recommend that you see the [facility] in [place]. 4. Follow-up - * please see Kashmir Pike within 2-3 days for recheck of rash 5. Pain control - * norco (hydrocodone/acetaminophen) 1 tablet every 6 hours as needed for pain * this product contains tylenol so do not take extra [id number]-[id number] tylenol if you take the pain killer * do not use alcohol while taking pain killers and do not drive while taking pain killers * if you need additional pain relief ooio-wcd-oxcnvho motrin is ok just be on the look-out for stomach upset 6. Itching - * vmfo-nfw-racyvuf benadryl 25mg every 6 hours as needed/desired * the prednisone will help with the itching as well 7. Return to [facility] if - * you have fever over 100.5 degrees * the rash significantly worsens rather than improves * you develop severe diarrhea * the ulcer around the umbilicus worsens * any other concerns Current Hospital Diet Patient's current hospital diet: Regular Diet Discharge Diet Recommended Diet: Regular Diet Procedures Procedures Performed: CAT scan of abdomen/pelvis - no evidence of necrotizing fascitis process in the abdomen, no evidence of skin abscess; swelling of the subcutaneous tissue of the abdominal wall only. Pending Studies Studies pending at discharge: no Medical Emergencies . Who to Call and When: Medical Emergencies: If at any time you feel your situation is an emergency, please call 911 immediately. . Non-Emergent Contact Non-Emergency issues call your: Primary Care Provider Call Non-Emergent contact if: temperature is above 100.5, your pain is not controlled, your pain is worsening, your pain is unusual for you, your pain is concerning you, wound has increased drainage, wound has increased redness, wound has increased pain, you have any medication questions . . "Provider Documentation" section prepared by Rehan Degroot. .
[2017-11-06] MEDS: LOPERAMIDE HCL 2 MG CAP PO PRN (09:47)
[2017-11-06 10:23] VITALS: BP 132/79; PULSE 73; TEMP 36.8; O2SAT 94
[2017-11-06] MEDS: CHOLESTYRAMINE LIGHT 4 GM PKT PO SCH (10:58)
[2017-11-07] MEDS ORDERED: VANCOMYCIN TROUGH ONE (08:30)
--- NOTE | 2017-11-08 08:43 | Discharge Summary ---
Discharge Summary Date of Service November 06, 2017. Discharge Summary Admission Date: November 04, 2017 at 17:45 Discharge Date: November 06, 2017 Discharge Disposition: Home Principal Diagnosis: abdominal wall cellulitis vs severe contact dermatitis Problems/Secondary Diagnoses: 1. hypothyroidism 2. hypertension 3. h/o PRES syndrome 4. CARLY on CPAP 5. Schatzki's ring 6. history of multiple abdominal surgeries for infertility 7. prior history of abdominal wall cellulitis 8. GERD 9. history of PMR Immunizations: Have You Had Influenza Vaccine: Yes Influenza Vaccine Date: Apr 08, 2013 History of Tetanus Vaccine?: Unknown History of Pneumococcal: Yes Pneumococcal Date: Apr 08, 2012 History of Hepatitis B Vaccine: Unknown Procedures: CT abd/pelvis - IMPRESSION: 1. No acute intra-abdominal or intrapelvic abnormality identified. 2. Colonic diverticulosis without diverticulitis. 3. Moderate subcutaneous stranding about the lower anterior abdominal wall with mild skin thickening, likely correlating with the clinical history of cellulitis. No drainable fluid collection. 4. Prior cholecystectomy and hysterectomy with postoperative changes of the gastroesophageal junction. Consultations: general surgery Medication Reconciliation New Medications: Amoxicillin & Pot Clavulanate (Augmentin 875-125 mg) 1 Tab Tab 875 MG PO BID for 7 Days, #14 TAB 0 Refills Diphenhydramine Hcl (Benadryl Allergy) 25 Mg Cap 1 CAP PO Q6H PRN for itching for 30 Days, #30 CAP 0 Refills [id number] Doxycycline Hyclate (Doxycycline Hyclate) 100 Mg Cap 100 MG PO BID for 7 Days, #14 CAP 0 Refills Hydrocodone/Acetaminophen 5MG/325MG (Renick 5MG/325MG) Tab 1 TABLET PO Q6H PRN for Pain, #15 TAB 0 Refills Prednisone (Prednisone) 50 Mg Tab 1 TAB PO DAILY for 5 Days, #5 TAB 0 Refills Collagenase (Santyl) 250 Unit/Gm Oin 1 APPLN EXT BID for 7 Days, #1 TUBE 0 Refills apply twice a day to the ulceration around your umbilicus in thin amount; cover with dressing. Ferrous Sulfate (Ferrous Sulfate) 325 Mg Tab 325 MG PO QAM, #30 TAB 0 Refills [id number] Pramipexole Dihydrochloride (Pramipexole Dihydrochlori) 0.25 Mg Tab 0.125 MG PO HS, #30 TAB 5 Refills Changed Medications: Lactobacillus Acidophilus (Lactinex) Tab 4 TAB PO TID for 10 Days, #120 TAB 0 Refills (Changed from: 1 TAB; BID; Refills : ) Continued Medications: Acetamin/Butalbital/Caffeine (Fioricet) 1 Ea Tab 1 TAB PO for Headache, TAB Cholestyramine (Cholestyramine) 4 Gm/Dose Pow 4 GM PO BID Levothyroxine Sodium (Synthroid) 125 Mcg Tab 125 MCG PO QAM Lisinopril (Zestril) 20 Mg Tab 20 MG PO as needed Metoprolol Succinate (Toprol Xl) 50 Mg Tabcr 50 MG PO QAM Sertraline (Zoloft) 100 Mg Tab 100 MG PO QAM Discharge Exam Physical Exam: General Appearance: no apparent distress ENT: pharynx normal Neck: no JVD Respiratory/Chest: lungs clear, no respiratory distress, no accessory muscle use Cardiovascular: regular rate, rhythm, no gallop, no murmur, normal peripheral pulses Abdomen / GI: normal bowel sounds, non tender, soft, no organomegaly Extremities: no pedal edema Neurologic/Psychiatric: alert, oriented x 3 Skin: + pertinent finding (irregular patches/regions of erythema on abdominal wall extending from the groin/waste line up the abdominal wall and ending superior to the umbilicus; the largest area of erythema is superior to the umbilicus; there are multiple other irregular areas of slightly warm erythema over the lateral portions of the abdominal wall; all regions are less erythematous, less raised, and less sandpaper-like; there is no tenderness of any region today in comparison to previous exams; there are NO vesicles in any region; there is an open wound/ulceration adjacent to the umbilicus (to the left of the umbilicus) that has old, dried material but no jeanie pus or odor ) Hospital Course HISTORY OF PRESENT ILLNESS: Ms. Gary is a pleasant 61yo female with history of HTN & hypothyroidism who presented with a concern of worsening abdominal wall redness/rash. She did not notice the redness last evening, but after getting out of the shower this morning, she stated she noticed significant spreading of the redness in the lower abdominal area. She asia a line to monitor the spread, and stated that within 2 hours since drawing the line the redness had spread even further. The patient stated she has a history of a chronic wound to the left of her umbilicus which has been present for approximately the past year and a half. She admitted that a few days prior she had been picking at the umbilical wound and is worried she may have caused this infection herself. She was seen here at [facility] in July 2016 and admitted due to abdominal wall cellulitis. Her cellulitis resolved with use of IV vancomycin. She denied any fever, chills, nausea, vomiting, chest pain, dyspnea, sore throat , upper respiratory infection symptoms, recent illness, abdominal pain, urinary symptoms, diarrhea, constipation, or other concerning symptoms. She reported some very mild abdominal "ache" as a result of the rash/redness. Lastly, she mentioned that she had been gardening in the 24 hours prior to the rash starting. She had been pulling weeds in a garden/flower bed. She doesn't recall seeing any poison aicha or other similar plants. HOSPITAL COURSE: The patient was placed on broad-spectrum IV antibiotics (zosyn & vancomycin along with clindamycin) for suspected abdominal wall cellulitis. She underwent a CT of the abdomen/pelvis to ensure there were no signs of a developing abscess or necrotizing process. The CT was negative for both. She was also seen by general surgery and no surgical intervention was needed given the CT findings. They did recommend, however, santyl's cream to her periumbilical ulcer/wound twice a day. From the start of her admission the rash and erythematous areas were very irregular and quite atypical for cellulitis. Furthermore she never had fever, leukocytosis, or other signs/symptoms of an infectious process. Blood cultures remained negative. After 48 hours of antibiotic therapy the rash/redness was largely unchanged. There was a question of whether the rash could have been a severe contact dermatitis to an environmental exposure (e.g. poison aicha, etc) or some atypical form of allergic reaction. In fact the patient developed significant pruritis later on in her stay from the rash. She never had vesicles and the rash crossed the midline of the abdomen making shingles highly unlikely. As a trial the patient was given a dose of IV steroid and within 8 hours the rash was markedly better. Therefore, she was kept on steroids in the event there was some element of contact dermatitis/allergic component. By hospital day #4 the patient's rash was much improved. The redness was much less intense, not raised any longer, and all areas of erythema were receding. At discharge she was asked to take/do the following - * prednisone course x 5 days for the possibility this was a severe contact dermatitis * doxycycline 100mg BID x 7 days * augmentin 875mg BID x 7 days * probiotics * santyl's cream BID to the periumbilical wound and cover with sterile dressing All other medical problems remained stable while here. She will follow-up with her PCP, Kashmir Pike, within 3 days of discharge to recheck the rash. If the periumbilical wound is not improving a consult with the [facility] is advised. Total Time Spent: Greater than 30 minutes This includes examination of the patient, discharge planning, medication reconciliation, and communication with other providers. Discharge Instructions Please refer to the electronic Patient Visit Report (Discharge Instructions) for additional information. Follow-Up Kashmir Pike - October at 9:20am. Additional Copies To Kashmir Pike III, CRNP
== END 2017-11-06 12:15 | disposition home or self-care (01) | DRG 603 ==
LOC: C.EDB 11:28 → C.MED 16:02 → ENRESERV 16:12 → OBSVTOIN 11-04 17:45
PROVIDERS: ADMIT Family Medicine; ATTEND Internal Medicine
DX: L03.311 Cellulitis of abdominal wall (principal); L98.499 Non-pressure chronic ulcer of skin of other sites with unspecified severity; M35.3 Polymyalgia rheumatica; I10 Essential (primary) hypertension; E03.9 Hypothyroidism, unspecified; L25.9 Unspecified contact dermatitis, unspecified cause; E78.00 Pure hypercholesterolemia, unspecified; Z83.3 Family history of diabetes mellitus; G47.33 Obstructive sleep apnea (adult) (pediatric); F41.9 Anxiety disorder, unspecified; K22.2 Esophageal obstruction; Z86.73 Personal history of transient ischemic attack (TIA), and cerebral infarction without residual deficits; Z91.14 Patient's other noncompliance with medication regimen; Z88.8 Allergy status to other drugs, medicaments and biological substances; Z88.1 Allergy status to other antibiotic agents; G25.81 Restless legs syndrome; R19.7 Diarrhea, unspecified